=== PATIENT | female | born 1970 | race Caucasian/White ===

== ENCOUNTER 2016-07-14 10:17 | Inpatient (IN) | payer BC ==
[2016-06-22 10:14] LABS: BASO % 0.6 %; BASO ABS # 0.05 K/uL (0-0.2); COMPLETE YES; EOS % 1.4 %; HEMATOCRIT 42.4 % (37-47); IG% 0.4 %; LYMPH % 19.6 %; LYMPH ABS # 1.59 K/uL (1.2-3.4); MEAN CELL VOLUME 83.3 fL (80-100); MEAN CORPUSCULAR HEMOGLOBIN 28.3 pg (25-34); MEAN PLATELET VOLUME 11.2 fL (7.4-10.4); MONO % 8.5 %; NEUT % 69.5 %; PLATELET COUNT 226 K/uL (130-400); RED BLOOD COUNT 5.09 M/uL (4.2-5.4); WHITE BLOOD COUNT 8.12 K/uL (4.8-10.8)
--- NOTE | 2016-06-22 10:16 | PAT Medication Instructions ---
Service Date Jun 22, 2016. Current Home Medication List Albuterol Hfa (Ventolin Hfa), 2 PUFFS INH QID PRN for RN Cyclobenzaprine Hcl (Flexeril), 10 MG PO TID PRN for PRN Fluticasone Propionate (Nasal) (Flonase Allergy Relief), 2 SPRAYS ISAAC PRN Lidocaine (Aspercreme W/Lidocaine), 1 DOSE TOP PRN Lidocaine (Lidoderm Patch 5%), 1 DOSE TOP Q12H PRN for RN Melatonin (Melatonin Maximum Strengt), 0.5 TAB PO HS PRN for RN Meloxicam (Mobic), 15 MG PO PRN Menthol (Topical Analgesic) (Biofreeze), 1 DOSE TOP PRN Naproxen (Aleve), 440 MG PO Q12H PRN for RN Omeprazole (Prilosec), 20 MG PO QAM Saline (Saline Nasal [place] Infant), 1 SPRY ISAAC QID PRN for PRN Valacyclovir Hcl (Valtrex), 1 GM PO PRN Medication Instructions For Your Scheduled Surgery - Hold the following medications 7 days prior to surgery per surgeon instructions: Meloxicam (Mobic), 15 MG PO PRN Naproxen (Aleve), 440 MG PO Q12H PRN for RN - Hold the following medications 24 hours prior to surgery: Menthol (Topical Analgesic) (Biofreeze), 1 DOSE TOP PRN Lidocaine (Aspercreme W/Lidocaine), 1 DOSE TOP PRN Lidocaine (Lidoderm Patch 5%), 1 DOSE TOP Q12H PRN for RN - Hold the following medications the morning of surgery: Cyclobenzaprine Hcl (Flexeril), 10 MG PO TID PRN for PRN Valacyclovir Hcl (Valtrex), 1 GM PO PRN - Take the following medications the morning of surgery with a sip of water: Saline (Saline Nasal [place] ), 1 SPRY ISAAC QID PRN for PRN Omeprazole (Prilosec), 20 MG PO QAM Fluticasone Propionate (Nasal) (Flonase Allergy Relief), 2 SPRAYS ISAAC PRN Albuterol Hfa (Ventolin Hfa), 2 PUFFS INH QID PRN for RN (bring with you to hospital on day of surgery) - Take the following medications as scheduled the night before surgery: Saline (Saline Nasal [place] Infant), 1 SPRY ISAAC QID PRN for PRN Melatonin (Melatonin Maximum Strengt), 0.5 TAB PO HS PRN for RN Fluticasone Propionate (Nasal) (Flonase Allergy Relief), 2 SPRAYS ISAAC PRN Cyclobenzaprine Hcl (Flexeril), 10 MG PO TID PRN for PRN If you have any questions please call us at [phone] or [phone] ( Naomi) or [phone]
[2016-06-22 10:37] LABS: CREATININE 0.77 mg/dl (0.60-1.20)
[2016-06-22 10:38] LABS: BUN/CREATININE RATIO 14.5 (10-20); CALCIUM 9.4 mg/dl (8.5-10.1); POTASSIUM 3.8 mmol/L (3.5-5.1)
--- NOTE | 2016-06-22 10:45 | DIAGNOSTIC IMAGING REPORT ---
TWO VIEW CHEST CLINICAL HISTORY: Preoperative examination. FINDINGS: PA and lateral chest radiographs are obtained. No prior studies are available for comparison at the time of dictation. The cardiomediastinal silhouette is unremarkable. There are low lung volumes. The lungs and pleural spaces are clear. There is no pneumothorax. The bony thorax appears intact. Mild thoracic scoliosis is observed. IMPRESSION: Low lung volumes with no active disease in the chest. Electronically signed by: Darrian Curtis M.D. 06/22/2016 10:44 AM
--- NOTE | 2016-07-13 16:06 | HISTORY & PHYSICAL EXAMINATION ---
DATE OF ADMISSION: 07/14/2015 HISTORY OF PRESENT ILLNESS: The patient presents to us with complaint of lower back pain down the left leg. It occasionally radiates below the knee. She has trialed physical therapy and injections without any fci relief. Denies bowel or bladder dysfunction. PAST MEDICAL HISTORY: Significant for GERD, arthritis, heart murmur, fibromyalgia, irregular heartbeat, migraines, obesity, peptic ulcer disease, hypertension, endometriosis, cancer. PAST SURGICAL HISTORY: Significant for D\T\C x5, laparoscopy x5, hysterectomy. ALLERGIES: TETRACYCLINE. MEDICATIONS: Include Mobic, Flexeril, Xanax, omeprazole, vitamin E, vitamin D and calcium. SOCIAL HISTORY: She is . 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 Alcohol and tobacco none. FAMILY HISTORY: Noncontributory. REVIEW OF SYSTEMS: Significant for fatigue, weakness, weight gain, heart murmur, rash, irregular heartbeat, headache, hoarseness, nasal congestion, diarrhea, heartburn, constipation, abdominal pain, poor coordination, memory loss, weakness, cough, frequent urination. PHYSICAL EXAMINATION: VITAL SIGNS: She is 5 feet 10, 200 pounds. HEAD, EYES, EARS, NOSE, AND THROAT: Speech appropriate. CARDIOPULMONARY: No gross abnormalities. ABDOMEN: Soft, nontender. GENITOURINARY: Deferred. NEUROLOGIC: Cranial nerves II-XII grossly intact. MUSCULOSKELETAL: She moves slowly around the room favoring the left side. Strength is intact bilateral lower extremities. Neurovascularly intact. ASSESSMENT: Disc deterioration with disc protrusion L5-S1. Facet arthropathy at L5-S1. PLAN: At this point in time she has failed conservative therapy and may consider surgical intervention. Surgery would require lumbar decompression and fusion L5-S1. Risks, benefits, pros, cons, and alternatives were outlined in detail. She would like to proceed with the above-mentioned surgical planning.
[2016-07-14] VITALS (9 sets, daily range): BP systolic 110–158; BP diastolic 67–82; PULSE 52–79; TEMP 36.4–37; O2SAT 96–100; Ht 177.8 cm; Wt 96.8 kg
[~2016-07-14] VITALS: Ht 177.8 cm; Wt 96.8 kg
--- NOTE | 2016-07-14 07:22 | History & Physical Bridge Note ---
H&P Re-Evaluation Bridge Note: I have examined the patient, reviewed the History & Physical and in the interval since the performance of the History & Physical I have noted the following changes of clinical significance: No changes noted
[~2016-07-14 10:17] MED LIST: CEFAZOLIN 2000 MG/60 ML D5W IV SCH; CYCL10TA6 PO; FLUT0.15 NAE; LIDO16CR TOP; MELATAB2 PO; MELO7.5T5 PO; MENT4GEL TOP; NAPR1TAB9 PO; NF656 TOP; PRLSR20 PO; SALI1SPR15 NAE; VALA1TAB31 PO; VNTHFA/IN INH
[2016-07-14] MEDS ORDERED: FENTANYL CITRATE INJ 50 MCG/1 ML 2 ML VIAL ONE ×3 (10:51→12:55)
[2016-07-14] MEDS ORDERED: MIDAZOLAM HCL 1 MG/ML 2ML VIAL ONE (10:51)
[2016-07-14] MEDS ORDERED: OCTREOTIDE ACETATE 100 MCG/ML VIAL SQ PRN (11:00)
[2016-07-14] MEDS: LACTATED RINGER'S 1000ML 1,000 ML IV SCH ×4 (11:10→23:39)
[2016-07-14] MEDS ORDERED: HYDROmorphone INJ 2 MG/ML SYR/VIAL ONE ×2 (11:39→12:49)
[2016-07-14] MEDS ORDERED: ONDANSETRON INJ 2 MG/ML 2 ML VIAL IV PRN ×2 (12:15→13:00)
[2016-07-14] MEDS ORDERED: EpHEDrine SULFATE INJ 50 MG/ML AMP IV PRN (12:15)
[2016-07-14] MEDS ORDERED: ATROPINE SULFATE 0.1 MG/ML 5ML SYR IV PRN (12:15)
[2016-07-14] MEDS ORDERED: FENTANYL CITRATE INJ 50 MCG/1 ML 2 ML VIAL IV PRN (12:15)
[2016-07-14] MEDS ORDERED: FLOSEAL HEMOSTATIC MATRIX 10ML TOP ONE (12:46)
[2016-07-14] MEDS ORDERED: BUPIVACAINE/EPINEPHRINE 0.5% MPF 1:200,000 30 ML VIAL INJ ONE (12:46)
[2016-07-14] MEDS ORDERED: BACITRACIN 50000 UNIT VIAL IR ONE (12:46)
[2016-07-14] MEDS ORDERED: ROCURONIUM BROMIDE 10 MG/ML 5 ML VIAL ONE (12:49)
[2016-07-14] MEDS ORDERED: SODIUM CHLORIDE 0.9% 1000ML 1,000 ML IV SCH (12:49)
[2016-07-14] MEDS ORDERED: PROPOFOL IV EMULSION 10 MG/ML 20 ML VIAL IV ONE (12:49)
[2016-07-14] MEDS ORDERED: LIDOCAINE HCL 2% 2 ML VIAL (20MG/ML) ONE (12:49)
[2016-07-14] MEDS ORDERED: DEXAMETHASONE SOD INJ 4 MG/ML VIAL ONE (12:49)
--- NOTE | 2016-07-14 12:49 | [facility] Post Operative Brief Note ---
Immediate Operative Summary Operative Date Jul 14, 2016. Pre-Operative Diagnosis Disc deterioration with disc protrusion L5-S1. Facet arthropathy at L5-S1. Post-Operative Diagnosis Disc deterioration with disc protrusion L5-S1. Facet arthropathy at L5-S1. Procedure(s) Performed L5-S1 Transforaminal Lumbar Laminectomy/Decompression; Discectomy; Pedicle Screw Fixation; Placement of Interbody Spacer; Application of Verticle Spine; Posterolateral Gutter Fusion Surgeon Dr. Ashish Soto Director Asset Surgeon(s) Wandy Ramos PA-C Estimated Blood Loss 150mL Findings stenosis Specimens None per surgeon
[2016-07-14] MEDS ORDERED: KETOROLAC TROMETHAMINE 30 MG/ML VIAL ONE (12:51)
[2016-07-14] MEDS ORDERED: GLYCOPYRROLATE INJ 0.2 MG/ML VIAL ONE (12:51)
[2016-07-14] MEDS ORDERED: NEOSTIGMINE METHYLSULFATE 1 MG/ML 10ML VIAL ONE (12:51)
[2016-07-14] MEDS ORDERED: ONDANSETRON INJ 2 MG/ML 2 ML VIAL ONE (12:51)
[2016-07-14] MEDS ORDERED: PHENYLEPHRINE 100MCG/ML 5ML SYR ONE (12:51)
[2016-07-14] MEDS ORDERED: FAMOTIDINE 20 MG TAB PO PRN (13:00)
[2016-07-14] MEDS ORDERED: MAGNESIUM HYDROXIDE SUSP 30 ML UDC PO PRN (13:00)
[2016-07-14] MEDS ORDERED: ALUMINUM/MAGNESIUM SUSP 30 ML UDC PO PRN (13:00)
[2016-07-14] MEDS ORDERED: PROMETHAZINE HCL INJ 12.5 MG in SODIUM CHLORIDE 0.9% 50ML 50 ML IV PRN (13:00)
[2016-07-14] MEDS ORDERED: METOCLOPRAMIDE HCL INJ 5 MG/ML 2 ML VIAL IV PRN (13:00)
[2016-07-14] MEDS ORDERED: ALBUTEROL HFA 8 GM INHALER INH PRN (13:00)
[2016-07-14] MEDS ORDERED: DO NOT ADMINISTER FLU VACCINE PRN ×3 (13:00)
[2016-07-14] MEDS ORDERED: SODIUM CHLORIDE 0.65% NA SOLN 45 ML (OCEAN) NAE PRN (13:00)
[2016-07-14] MEDS ORDERED: LORAZEPAM 0.5 MG TAB PO PRN (13:00)
[2016-07-14] MEDS ORDERED: LORAZEPAM INJ 0.5 MG in SYRINGE 0 ML IV PRN (13:00)
[2016-07-14] MEDS ORDERED: ACETAMINOPHEN 500 MG TAB PO PRN (13:00)
[2016-07-14] MEDS ORDERED: SOD PHOSPHATE/SOD BIPHOSPHATE ENEMA 132 ML BTL PR PRN (13:00)
[2016-07-14] MEDS ORDERED: BISACODYL 10 MG SUPP PR PRN (13:00)
[2016-07-14] MEDS ORDERED: NALOXONE HCL 0.4 MG/1 ML VIAL/CARP IV PRN ×2 (13:00)
[2016-07-14] MEDS ORDERED: FLUTICASONE PROPIONATE NA SPR 16 GM BTL NAE PRN (13:00)
[2016-07-14] MEDS ORDERED: ACETAMINOPHEN IV 100 ML IV PRN (13:00)
[2016-07-14] MEDS ORDERED: DO NOT ADMINISTER PNEUMOCOCCAL VACCINE PRN ×2 (13:00)
[2016-07-14] MEDS ORDERED: hydrOXYzine HCL 25 MG TAB PO PRN (13:00)
[2016-07-14] MEDS ORDERED: ESMOLOL HCL 10 MG/ML 10 ML VIAL ONE (13:14)
--- NOTE | 2016-07-14 13:16 | OPERATIVE REPORT ---
DATE OF OPERATION: 07/14/2016 PREOPERATIVE DIAGNOSES: Spinal stenosis, disc desiccation L5-S1. POSTOPERATIVE DIAGNOSES: Same. PROCEDURES PERFORMED: 1. Lumbar decompression and medial facetectomy and foraminotomy L5-S1. 2. Posterior spinal fusion L5-S1. 3. Placement posterior instrumentation using Orthros rods and screws, L5-S1. 4. Interbody fusion L5-S1. 5. Placement of PEEK cage 8 x 26 mm at L5-S1. 6. Placement of locally harvested morcellized autograft in posterior gutters. 7. Placement of fiber FiberNet and OsteoStrux interbody space and posterior gutters. SURGEON: Dr. Ashish Soto. CREDIT COLLECTIONS ANALYST: Wandy Jauregui PA-C. ANESTHESIA: General. DISPOSITION: The patient awakened and taken to PACU in stable condition. Due to the complex nature of the procedure, the entire surgery was performed with the program services assistant of CRISTINA Hollins. The study assistant, under direct supervision, was involved in the actual performance of all aspects of the surgical procedure including hemostasis, tissue retraction and incision, instrument management, patient positioning, and wound closure. DESCRIPTION OF PROCEDURE: The patient was met with preoperatively, case discussed and all questions were addressed. At that point, the patient was taken back to operative suite and after undergoing successful general intubation by the department of anesthesia was placed in prone position on Evan table atop a Zeyad frame. All bony prominences were well padded and the eyes were inspected to ensure there was no external pressure placed upon them. At this point, lumbar spine was prepped and draped in normal sterile fashion. Sharp dissection with the assistance of Bovie cautery was performed down to and exposing the lamina and transverse processes of L5 and sacral ala bilaterally. From a caudal to cephalad fashion, complete laminectomy of L5 was performed including medial facetectomies and foraminotomies addressing significant lateral recess and foraminal disease. Pedicle screws were then placed at L5 and S1 levels bilaterally with assistance of fluoroscopy and appropriate size solomon provisionally placed. Through a transforaminal approach on the right, a complete discectomy was performed, endplates curetted to subcortical bone and an 8 x 26 mm PEEK cage filled with FiberNet and OsteoStrux tapped into position. The rods were then locked into final position. The transverse processes of L5 and sacral ala burred to subcortical bleeding bone. The remaining OsteoStrux and FiberNet were placed in the posterior gutters. A 7 flat SOFIA drain inserted. Incision was closed with 1-0 Vicryl in the fascia, 2-0 Vicryl subcutaneously, 4-0 Monocryl for final skin closure. Steri-Strips and sterile dressing was placed. The patient was awakened and taken to PACU in stable condition. I attest to the content of the Intraoperative Record and any orders documented therein. Any exceptio ns are noted below.
[2016-07-14] MEDS ORDERED: HYDROmorphone HCL 0.5MG/ML 50 ML CASSETTE ONE (13:19)
--- NOTE | 2016-07-14 13:34 | Anesthesiology Progress Note ---
Anesthesia Post Op Note Date & Time Jul 14, 2016 at 13:33 Vital Signs Pain Intensity: 5 Vital Signs Past 12 Hours Date Time Temp Pulse Resp B/P Pulse Ox O2 Delivery O2 Flow Rate FiO2 07/14/16 13:20 62 16 129/79 100 Mask 10 07/14/16 13:11 36.2 99 16 136/71 97 Mask 10 07/14/16 10:41 99 Room Air 07/14/16 10:33 36.6 63 20 158/82 Notes Mental Status: alert / awake / arousable, participated in evaluation Pt Amnestic to Procedure: Yes Nausea / Vomiting: adequately controlled Pain: adequately controlled Airway Patency, RR, SpO2: stable & adequate BP & HR: stable & adequate Hydration State: stable & adequate Anesthetic Complications: no major complications apparent
--- NOTE | 2016-07-14 13:44 | DIAGNOSTIC IMAGING REPORT ---
INTRAOPERATIVE LUMBAR SPINE 2 VIEWS CLINICAL HISTORY: [id number]/FUSION/INTERBODY COMPARISON STUDY: No previous studies for comparison. FINDINGS: 31 seconds of fluoroscopic time was utilized. There are postsurgical changes of an L5-S1 discectomy and interbody fusion. There are L5 and S1 pedicle screws with adjoining spinal rods. IMPRESSION: Intraoperative radiographs demonstrating an L5-S1 discectomy, interbody fusion and posterior hardware fusion Electronically signed by: Pola Stanley M.D. 07/14/2016 1:42 PM
[2016-07-14] MEDS: HYDROmorphone HCL 0.5MG/ML 50 ML CASSETTE IV PRN ×3 (14:26→23:11)
--- NOTE | 2016-07-14 18:38 | Medical Consult ---
History General Date of Service: Jul 14, 2016. Chief Complaint: post op care Stated Complaint: Spinal Stenosis HPI The patient is a 45 year old female who presents to [facility] with complaints of Spinal Stenosis. The patient's primary care provider is Alden eLung D.O.. Historian: patient Severity: mild Complaint Status: improved Quality of Pain: aching, dull Method of Injury: other (spine surgery) Modifying Factors: movement Review of Systems Eyes: reports: no symptoms ENT: reports: no symptoms Cardiovascular: reports: no symptoms Respiratory: denies: cough, orthopnea Gastrointestinal: denies: abdominal pain, constipation Genitourinary - Female: reports: no symptoms Musculoskeletal: reports: back pain, myalgias Integumentary: reports: no symptoms Neurologic: reports: no symptoms Psychiatric: reports: anxiety, denies: depression Past Medical History Past Medical History: cancer (carcinoid tumor s/p removal), fibromyalgia, GERD Past Surgical History: hysterectomy, other (ileal and appendiceal resection) Family History Sibling: Hypertension Social History Hx Tobacco Use In Past Year?: No Smoking Status: Never Smoker Immunizations History of Influenza Vaccine: Unknown History of Tetanus Vaccine?: Unknown History of MDRO History of MDRO: No Allergies Coded Allergies: Doxycycline (Unverified Allergy, Unknown, NAUSEA, 06/22/16) POLLEN (Unverified Allergy, Unknown, POLLEN,DUST,GRASS-ITCHY EYES, STUFFY NOSE, 06/22/16) Tetracycline (Unverified Allergy, Unknown, nausea, 06/22/16) Current Medications Reported Home Medications Medications Dose Route/Sig Max Daily Dose Days Date Category Lidoderm Patch 5% (Lidocaine) 1 Ea Tdsy 1 Dose TOP Q12H PRN 06/22/16 Reported Aspercreme W/Lidocaine (Lidocaine) 4 % Cre 1 Dose TOP PRN 06/22/16 Reported Biofreeze (Menthol (Topical Analgesic)) 4 % Gel 1 Dose TOP PRN 06/22/16 Reported Aleve (Naproxen) 220 Mg Tab 440 Mg PO Q12H PRN 06/22/16 Reported Saline Nasal [place] Infant (Saline) 0.65 % Spr 1 [place] ISAAC QID PRN 7 06/22/16 Reported Flonase Allergy Relief (Fluticasone Propionate (Nasal)) 50 Mcg/Act Spr 2 Sprays ISAAC PRN 06/22/16 Reported Melatonin Maximum Strengt (Melatonin) 5 Mg Tab 0.5 Tab PO HS PRN 30 06/22/16 Reported Flexeril (Cyclobenzaprine Hcl) 10 Mg Tab 10 Mg PO TID PRN 06/22/16 Reported Mobic (Meloxicam) 7.5 Mg Tab 15 Mg PO PRN 06/22/16 Reported Valtrex (Valacyclovir Hcl) 1 Gm Tab 1 Gm PO PRN 06/22/16 Reported Ventolin Hfa (Albuterol) 200 Puffs/69814 Mcg Aers 2 Puffs INH QID PRN 06/22/16 Reported Prilosec (Omeprazole) 20 Mg Capcr 20 Mg PO QAM 06/22/16 Reported Physical Physical Exam Vital Signs: Date Time Temp Pulse Resp B/P Pulse Ox O2 Delivery O2 Flow Rate FiO2 07/14/16 17:33 36.4 62 14 125/78 100 Nasal Cannula 4.0 07/14/16 16:26 36.4 63 14 116/77 100 Nasal Cannula 4.0 07/14/16 15:39 36.4 79 14 119/81 100 Nasal Cannula 4.0 07/14/16 15:00 52 16 113/73 100 Nasal Cannula 4.0 07/14/16 14:25 Nasal Cannula 4.0 07/14/16 14:25 36.6 61 16 120/77 100 Nasal Cannula 4.0 07/14/16 14:25 100 Nasal Cannula 4.0 07/14/16 14:15 60 20 132/78 100 Nasal Cannula 4 07/14/16 14:00 56 16 121/82 100 Nasal Cannula 4 07/14/16 13:50 36.4 58 15 121/81 100 Nasal Cannula 4 07/14/16 13:40 53 16 124/73 100 Nasal Cannula 4 07/14/16 13:30 57 17 127/83 100 Mask 10 07/14/16 13:20 62 16 129/79 100 Mask 10 07/14/16 13:11 36.2 99 16 136/71 97 Mask 10 07/14/16 10:41 99 Room Air 07/14/16 10:33 36.6 63 20 158/82 General Appearance: WELL-APPEARING, uncomfortable Head: NORMOCEPHALIC, ATRAUMATIC Eyes: PERRLA, EOMI Respiratory: BREATH SOUNDS NORMAL, CLEAR TO AUSCULTATION, NO RESPIRATORY DISTRESS Cardiovasular: REGULAR RATE/RHYTHM, NORMAL S1S2 Abdomen: NON TENDER, NORMAL BOWEL SOUNDS, NO REBOUND Back: other (dressing in place mild tenderness to palpitation) Neuro: ALERT, ORIENTED x 3, NORMAL MOTOR EXAM, NORMAL SENSATION Psychiatric: NORMAL AFFECT, NO SUICIDAL IDEATION Diagnostics Radiology Interpretation: CXR NORMAL EKG Interpretation: NORMAL EKG Impression Assessment and Plan 45 F with spinal surgery, doing well post op home medications have been continued for GERD, no meds currently for HTN and inhaled meds are PRN only regarding her carcinoid, initially metastatic at onset, no recent issues but octreotide is listed for prn use DVT prevention is mechanical Admit To Med/Surg Code Status Level 1 - Full Code DVT Prophylaxis SCDs
[2016-07-14] MEDS: CEFAZOLIN IV 2,000 MG in DEXTROSE 5% 50ML 50 ML IV SCH (19:31)
[2016-07-14] MEDS: DEXAMETHASONE INJ 6 MG in SYRINGE 0 ML IV SCH (19:43)
[2016-07-14] MEDS: DOCUSATE SODIUM/SENNA 50/8.6MG TAB PO SCH (20:38)
[2016-07-15 02:43] VITALS: BP 110/63; PULSE 56; TEMP 36.6; O2SAT 98
[2016-07-15] MEDS: CEFAZOLIN IV 2,000 MG in DEXTROSE 5% 50ML 50 ML IV SCH (03:38)
[2016-07-15] MEDS: DEXAMETHASONE INJ 6 MG in SYRINGE 0 ML IV SCH ×2 (03:38→11:34)
[2016-07-15 04:00] VITALS: BP 95/59; PULSE 70; TEMP 36.7; O2SAT 95
[2016-07-15] MEDS ORDERED: HYDROmorphone INJ 1 MG/ML SYR IV PRN (06:00)
[2016-07-15] MEDS ORDERED: DC PCA ONE (06:00)
[2016-07-15] MEDS ORDERED: NURSING VERBAL MED ORDER ONE (06:15)
[2016-07-15 07:31] LABS: MEAN CELL VOLUME 82.8 fL (80-100); MEAN CORPUSCULAR HEMOGLOBIN 28.4 pg (25-34); MEAN CORPUSCULAR HGB CONC 34.3 g/dl (32-36); MEAN PLATELET VOLUME 10.9 fL (7.4-10.4); PLATELET COUNT 231 K/uL (130-400); RED BLOOD COUNT 4.47 M/uL (4.2-5.4); WHITE BLOOD COUNT 22.94 K/uL (4.8-10.8)
[2016-07-15] MEDS: OXYCODONE HCL IR 5 MG TAB (IMMEDIATE RELEASE) PO PRN ×4 (07:36→17:50)
[2016-07-15] MEDS: PANTOprazole SOD 40 MG TAB PO SCH (07:36)
[2016-07-15 07:42] VITALS: BP 118/75; PULSE 59; TEMP 36.9; O2SAT 95
[2016-07-15 07:56] LABS: BASO ABS # 0.01 K/uL (0-0.2); COMPLETE YES; IG% 0.4 %; LYMPH ABS # 0.69 K/uL (1.2-3.4); MONO % 2.9 %; NEUT % 93.7 %
[2016-07-15 08:04] LABS: BUN/CREATININE RATIO 11.3 (10-20); CALCIUM 9.1 mg/dl (8.5-10.1); CREATININE 0.98 mg/dl (0.60-1.20)
--- NOTE | 2016-07-15 08:22 | Anesthesiology Progress Note ---
Anesthesia Post Op Note Date & Time Jul 15, 2016 at 08:21 Vital Signs Vital Signs Past 12 Hours Date Time Temp Pulse Resp B/P Pulse Ox O2 Delivery O2 Flow Rate FiO2 07/15/16 07:42 36.9 59 16 118/75 95 Room Air 07/15/16 07:41 Room Air 07/15/16 04:00 36.7 70 16 95/59 95 Room Air 07/15/16 02:43 36.6 56 16 110/63 98 Room Air 07/14/16 23:49 37.0 57 16 110/67 96 Room Air 07/14/16 23:30 Room Air Notes Mental Status: alert / awake / arousable, participated in evaluation Pt Amnestic to Procedure: Yes Nausea / Vomiting: adequately controlled Pain: adequately controlled Airway Patency, RR, SpO2: stable & adequate BP & HR: stable & adequate Hydration State: stable & adequate Anesthetic Complications: no major complications apparent
--- NOTE | 2016-07-15 08:34 | PROGRESS NOTE ---
DATE: 07/15/2016 Postop day 1. Back pain controlled. Leg pain improved. Vital signs stable. T-max 36.9. SOFIA drained 85 mL. Hematocrit this a.m. is 37.0. PHYSICAL EXAMINATION: She has good strength to testing, appears comfortable. ASSESSMENT: Status post lumbar decompression and fusion. PLAN: At this time, will initiate physical therapy, advance her bowel regimen and discharge home possibly tomorrow.
[2016-07-15 11:34] VITALS: BP 103/65; PULSE 71; TEMP 36.7; O2SAT 95
[2016-07-15 14:50] VITALS: BP 137/83; PULSE 58; TEMP 36.9; O2SAT 96
[2016-07-15] MEDS: DOCUSATE SODIUM/SENNA 50/8.6MG TAB PO SCH (20:33)
[2016-07-15 23:49] VITALS: BP 119/73; PULSE 54; TEMP 36.5; O2SAT 97
[2016-07-16] MEDS: POLYETHYLENE (MIRALAX) 17 GM PACK PO SCH ×2 (04:56→12:35)
[2016-07-16] MEDS: OXYCODONE HCL IR 5 MG TAB (IMMEDIATE RELEASE) PO PRN ×3 (05:51→12:40)
[2016-07-16 05:58] VITALS: BP 123/80; PULSE 51; TEMP 36.6; O2SAT 97
[2016-07-16] MEDS ORDERED: RXC5 PO (07:43)
--- NOTE | 2016-07-16 07:44 | Discharge Instructions ---
Discharge Instructions Admission Reason for Admission: Spinal Stenosis Discharge Discharge Diagnosis / Problem: stenosis Discharge Goals Goal(s): Improve function Activity Recommendations Activity Limitations: per Instructions/Follow-up section . Instructions / Follow-Up Instructions / Follow-Up ACTIVITY RECOMMENDATIONS: SELF CARE INSTRUCTIONS AFTER THORACIC/LUMBAR FUSIONS 1. You may walk to your tolerance. It is good exercise for your legs and back. Expect some back and intermittent leg aches and pains. 2. You may perform "counter-top" level activities (make a sandwich, mila with a project, etc.). 3. No bending or lifting of more than 10 pounds or back twisting of any nature (roll like a log when turning in bed). 4. You may ride in a car for 20-30 minutes at a time. No driving until after your first visit with your doctor. 5. Frequent changes of position and restricting sitting to 30 minutes at a time will help limit the amount of back spasms and stiffness you may experience. 6. You may discontinue the use of ambulatory aids (cane, crutches, etc.) once your strength and confidence allow. 7. You may microsoft infrastructure consultant the shower and let water strike your incision when you arrive home at least once daily. Do not take a tub bath, sit in a hot tub or go into a swimming pool until after your first recheck in the office. SPECIAL CARE INSTRUCTIONS: VERY IMPORTANT TO READ AND REVIEW A. Your surgical incision has been closed with a cosmetic suture under the skin that will dissolve in about 6 weeks. In 14 days, you can use a pair of clean scissors and cut the suture that is left outside of the skin at the ends of your incision. 1. The small skin tapes can be removed 7 days after surgery if they have not fallen off by that point. 2. You may keep the wound open to air as much as possible to promote healing after post-op day number 5 unless told otherwise by your doctor. 3. If you think the wound looks like it is becoming infected (redness or worsening drainage) and/or you are experiencing fever, chill or worsening back pain and muscle spasms, contact the office so that we may evaluate you as soon as possible. B. Complications are uncommon, but please contact us if you have any signs or symptoms of: 1. wound infection (fever higher than 102.5 degrees F, redness, separation of wound, drainage, or increasing pain from the incision) 2. blood clots in legs (pain, swelling, redness and warmth in legs) 3. urinary tract infection (fever higher than 102.5 degrees F, burning upon urination or increased frequency of urination) 4. nerve problems (inability to walk on your toes or heels, numbness, loss of bowel or bladder control) 5. any other symptoms that concern you C. Please call the office at if you have any concerns or questions about your operation or recovery. D. No smoking! Smoking drastically decreases the chance of a solid fusion. E. Do not take any anti-inflammatory medications (Indocin, Advil, Motrin, Aspirin, Naprosyn, etc.) as these may inhibit the chance of a solid fusion. Tylenol is okay to take for pain. MANAGING PAIN AFTER SPINAL SURGERY 1. Narcotic medication is intended for short-term use and will be provided for surgical pain. Surgical pain usually lasts for a period of 4-6 weeks. Narcotic medication includes Percocet, Vicodin, Darvocet, Tylenol #3 or Lortab. 2. Longer-term pain is more appropriately treated with non-narcotic medication such as Tylenol ES. 3. Muscle spasm is not appropriately treated with narcotics. Muscle relaxers such as Soma, Flexeril or Skelaxin can be used along with Tylenol ES. 4. Remember that we all live with some "aches and pains". This is not unusual or uncommon after an injury or as we get older. a. Back pain is expected and may include muscle spasms for 4 to 6 weeks after surgery. The pain should gradually improve. If the pain worsens for no apparent reason, please contact the office. b. Intermittent leg pain may also be experienced and should not be concerned about unless it worsens for no apparent reason. If so, please contact the office. 5. We will provide appropriate medication within the normal guidelines of their prescribed use. We will also be very cautious and aware of potential abuse and extended duration of patients' medication needs. a. Pain medications are for your comfort and to assist with sleep and rest so that the tissue can heal. They are not provided in order to return to normal activity and should not be used through the day. To do so or worsening pain at night can result from ongoing tissue damage and development of tolerance to the prescribed medicine. 6. Please allow 2-3 days to process refills. Prescriptions will not be mailed but must be picked up at the office. FOLLOW UP VISIT: Keep your scheduled follow-up appointment. Any questions, please call the office at . Current Hospital Diet Patient's current hospital diet: Regular Diet Discharge Diet Recommended Diet: Regular Diet Procedures Procedures Performed: L5-S1 Transforaminal Lumbar Laminectomy/Decompression; Discectomy; Pedicle Screw Fixation; Placement of Interbody Spacer; Application of Verticle Spine; Posterolateral Gutter Fusion Pending Studies Studies pending at discharge: no Medical Emergencies . Who to Call and When: Medical Emergencies: If at any time you feel your situation is an emergency, please call 911 immediately. . Non-Emergent Contact Non-Emergency issues call your: Primary Care Provider . "Provider Documentation" section prepared by Ashish Soto. VTE Core Measure Inpt VTE Proph given/why not?: Atul Gee, [facility]
[2016-07-16] MEDS: PANTOprazole SOD 40 MG TAB PO SCH (07:52)
[2016-07-16 08:02] VITALS: BP 132/78; PULSE 88; TEMP 36.5; O2SAT 95
[2016-07-16 08:23] VITALS: O2SAT 95
[2016-07-16 10:42] VITALS: BP 123/80; PULSE 51; TEMP 36.6; O2SAT 97
--- NOTE | 2016-07-16 14:42 | DISCHARGE SUMMARY ---
PRINCIPAL DIAGNOSIS: Spinal stenosis. HOSPITAL COURSE FOLLOWS: On July 14, the patient underwent lumbar decompression and fusion L5-S1, tolerated this well and taken to the orthopedic floor postoperatively. Postop day #1, he was up and ambulatory. Leg pain, back pain controlled; progressed to postop day #2. SOFIA drain decreased appropriately, subsequently was discharged home with home health. Discharge orders and instructions found on the chart for further review.
== END 2016-07-16 13:21 | disposition home health service (06) | DRG 460 ==
LOC: ENRESERVTM → ENRESERVDT → C.ACU 10:17 → C.3E 12:53
PROVIDERS: ADMIT Orthopaedic Surgery Orthopaedic Surgery of the Spine; ATTEND Orthopaedic Surgery Orthopaedic Surgery of the Spine
PROC: 0ST40ZZ Resection of Lumbosacral Disc, Open Approach (ICD-10-PCS; principal; 2016-07-14 12:30)
PROC: 0SG30AJ Fusion of Lumbosacral Joint with Interbody Fusion Device, Posterior Approach, Anterior Column, Open Approach (ICD-10-PCS; principal; 2016-07-14 12:30)
PROC: 0SG3071 Fusion of Lumbosacral Joint with Autologous Tissue Substitute, Posterior Approach, Posterior Column, Open Approach (ICD-10-PCS; principal; 2016-07-14 12:30)
DX: M51.27 Other intervertebral disc displacement, lumbosacral region (principal); E34.0 Carcinoid syndrome; M48.07 Spinal stenosis, lumbosacral region; M47.27 Other spondylosis with radiculopathy, lumbosacral region; K21.9 Gastro-esophageal reflux disease without esophagitis; M79.7 Fibromyalgia; M19.90 Unspecified osteoarthritis, unspecified site; R01.1 Cardiac murmur, unspecified; E66.9 Obesity, unspecified; Z68.30 Body mass index [BMI] 30.0-30.9, adult; Z79.1 Long term (current) use of non-steroidal anti-inflammatories (NSAID); Z79.899 Other long term (current) drug therapy

== ENCOUNTER 2020-05-15 14:51 | Observation (INO) ==
[2020-05-15 16:01] LABS: Basophils # (auto) 0.01 K/uL (0-0.2); Basophils % (auto) 0.3 %; Eosinophils # (auto) 0.04 K/uL (0-0.5); Hematocrit (blood only) 45.5 % (37-47); Hemoglobin 15.6 g/dL (12.0-16.0); Lymphocytes # (auto) 0.87 K/uL (1.2-3.4); Lymphocytes % (auto) 22.7 %; Mean Corpuscular Hemoglobin 29.2 pg (25-34); Mean Corpuscular Hgb Conc 34.3 g/dL (32-36); Mean Platelet Volume 10.6 fL (7.4-10.4); Monocytes % (auto) 15.6 %; Neutrophils # (auto) 2.32 K/uL (1.4-6.5); Neutrophils % (auto) 60.4 %; Platelet Count 157 K/uL (130-400); RDW Coefficient of Variation 13.7 % (11.5-14.5); RDW Standard Deviation 42.7 fL (36.4-46.3); Red Blood Count 5.35 M/uL (4.2-5.4); White Blood Count 3.84 K/uL (4.8-10.8)
[2020-05-15] MEDS ORDERED: SODIUM CHLORIDE 0.9% 1000ML 2,000 ML IV ONE (16:05)
[2020-05-15 16:06] LABS: Appearance Urine Clear (Clear); Bilirubin Urine Negative (Negative); Blood Urine Negative (Negative); Color Urine Yellow; Glucose Urine UA Negative (Negative); Ketones Urine Negative (Negative); Leukocyte Esterase Urine Negative (Negative); Nitrite Urine Negative (Negative); Protein Urine Negative (Negative); Specific Gravity Urine 1.014 (1.000-1.030); Urobilinogen Urine Negative (Negative)
[2020-05-15] MEDS ORDERED: FAMOTIDINE 20MG IV PUSH 20 MG/5 ML SYR IV STA (16:06)
[2020-05-15] MEDS ORDERED: ACETAMINOPHEN 1,000 MG/100 ML VIAL IV STA (16:06)
[2020-05-15] MEDS ORDERED: PROCHLORPERAZINE 2 ML IV ONE (16:07)
[2020-05-15] MEDS ORDERED: diphenhydrAMINE 50 MG/ML VIAL IV STA (16:07)
[2020-05-15 16:16] LABS: Alanine Aminotransferase 37 U/L (12-78); Albumin Level 3.9 gm/dl (3.4-5.0); BUN Creatinine Ratio 13.9 (10-20); Blood Urea Nitrogen 10 mg/dl (7-18); Calcium 9.5 mg/dl (8.5-10.1); Carbon Dioxide 31 mmol/L (21-32); Chloride 103 mmol/L (98-107); Creatinine Clr Calc Pharmacy 107.7 ml/min; Est GFR (African American) 110.3; Est GFR (Non-African American) 95.1; Glucose 82 mg/dl (70-99); Potassium 3.6 mmol/L (3.5-5.1); Sodium 140 mmol/L (136-145)
[2020-05-15 16:22] LABS: Albumin Globulin Ratio 1.1 (0.9-2); Alkaline Phosphatase 147 U/L (45-117); Aspartate Aminotransferase 27 U/L (15-37); Bilirubin Direct 0.1 mg/dl (0-0.2); Bilirubin,Total 0.3 mg/dl (0.2-1); Globulin 3.5 gm/dl (2.5-4.0); Magnesium 2.1 mg/dl (1.8-2.4); Phosphorus 2.8 mg/dl (2.5-4.9); Total Protein 7.4 gm/dl (6.4-8.2)
[2020-05-15 16:37] LABS: NT Pro B Type Natriuretic Pept 36 pg/ml (0-450); Troponin I < 0.015 ng/ml (0-0.045)
--- NOTE | 2020-05-15 16:53 | Electrocardiogram Report ---
Test Reason : Blood Pressure : / mmHG Vent. Rate : 050 BPM Atrial Rate : 050 BPM P-R Int : 162 ms QRS Dur : 144 ms QT Int : 442 ms P-R-T Axes : 046 006 122 degrees QTc Int : 402 ms Sinus bradycardia Left bundle branch block Abnormal ECG When compared with ECG of 26-JUL-2019 01:12, Left bundle branch block is now Present Confirmed by Devin Spence ([id number]) on 05/15/2020 4:52:57 PM Referred By: Confirmed By:Manny Spence
[2020-05-15 17:14] LABS: D Dimer 220 ug/L FEU (0-500); Prothrombin Time 10.4 Seconds (9.0-12.0)
--- NOTE | 2020-05-15 17:28 | XRay Report ---
XR chest 1V portable CLINICAL HISTORY: SEPSIS COMPARISON STUDY: 06/22/2016 FINDINGS: The cardiac and mediastinal contours are normal. There is no evidence of focal pulmonary co nsolidation. There is no evidence of failure. No pleural effusions are visualized.[Slight interstitia l prominence likely relates to technical factors given the AP technique and patient's body habitus. IMPRESSION: No active disease in the chest. ACT 112: Negative or not required by law. Electronically signed by: Pola Stanley M.D. 05/15/2020 5:27 PM
[2020-05-15 17:36] LABS: Procalcitonin < 0.05 ng/ml (0-0.5)
[2020-05-15 17:39] LABS: Monotest Negative (Negative)
[2020-05-15 18:10] LABS: Adenovirus PCR Not Detected (NotDetected); Coronavirus 229E PCR Not Detected (NotDetected); Coronavirus HKU1 PCR Not Detected (NotDetected)
[2020-05-15 18:11] LABS: Coronavirus CoV-2 (COVID19)PCR DETECTED (NotDetected); Coronavirus NL63 PCR Not Detected (NotDetected); Coronavirus OC43PCR Not Detected (NotDetected); Human Metapneumovirus PCR Not Detected (NotDetected); Influenza A PCR Not Detected (NotDetected); Rhinovirus/Enterovirus PCR Not Detected (NotDetected)
[2020-05-15 18:13] LABS: Bordetella parapertussis PCR Not Detected (NotDetected); Bordetella pertussis PCR Not Detected (NotDetected); Chlamydia pneumoniae PCR Not Detected (NotDetected); Mycoplasma pneumoniae PCR Not Detected (NotDetected); Parainfluenza Virus 1 PCR Not Detected (NotDetected); Parainfluenza Virus 2 PCR Not Detected (NotDetected); Parainfluenza Virus 3 PCR Not Detected (NotDetected); Parainfluenza Virus 4 PCR Not Detected (NotDetected); Respiratory Syncytial VirusPCR Not Detected (NotDetected)
[2020-05-15 18:14] LABS: Influenza B PCR Not Detected (NotDetected)
--- NOTE | 2020-05-15 19:12 | Emergency Department Note ---
Impression & Plan COVID-19, New onset left bundle branch block (LBBB), Atypical chest pain ED Provider Note NAME: SANGEETA GUERRA AGE: 49 SEX: F ARRIVES VIA: Walk-In INFORMANT: Patient, ED PROVIDER(S): Josh Amos MD CHIEF COMPLAINT: Feverish, BOYLE, diarrhea, body aches PLAN: Disposition: Admit MEDICAL DECISION MAKING: The patient is a pleasant 49-year-old woman with a past medical history of remote carcinoid tumor status post bowel resection, trigeminal neuralgia, GERD who presents emergency department for evaluation of constant worsening symptoms over the past several weeks of constant chest pain, generalized weakness, fev erishness, body aches, headache, diarrhea, recently seen by her PCP and treated with doxycycline. The patient had a CT scan of her abdomen pelvis 2 days ago that was negative for acute process. Reports she tested negative for COVID-19 on April 20 after her partner developed Covid-like symptoms that her partner was also Covid19 negative on her single test. Otherwise she denies any known COVID-19 exposures. She reports nausea and decreased appetite and oral intake but no vomiting. Denies any prior history of heart disease or blood clots in her legs or lungs. On arrival patient is uncomfortable appearing but no acute distress, afebrile stable vital signs. She does appear clinically dry. He has generalized abdominal discomfort without discrete tenderness. Lungs are clear. EKG demonstrates a new left bundle branch block when compared to July 2019 with QRS now lengthened to 144 compared to 88, previously. No sgarbossa criteria. WBC 3.8, nonspecific. H/H and platelets within normal limits. She does have mild lymphopenia at 0.87. Chemistry without acidosis. Lactate within normal limits. Electrolytes and LFTs unremarkable. Troponin negative/undetectable. Procalcitonin unremarkable < 0.05. UA without evidence of infection. Biofire PCR was performed and the patient was positive for COVID-19 today. On reevaluation the patient reported significant improvement after IV fluid hydration, Compazine, Pepcid, diphenhydramine as well as IV Tylenol. Moreover, she reported complete resolution of her chest pain that she relates has been constant for at least 3 weeks. She admits that she did stop taking her omeprazole because she was not eating that much and did not feel well. Case was reviewed with DENISE Perez Cardiology on-call, and we agree that given the patient's COVID-19 infection in the setting of her new left bundle branch block compared to July 2019, in the setting possible cardiac effects related to COVID-19, it is reasonable to admit the patient for further evaluation. I did review her findings including her COVID-19 positive test as well as her new left bundle branch block on EKG she is agreeable to proceed with admission per our recommendations. She was counseled to contact any individuals who she may have been in contact with including her father who is 70 years old and drove her to the hospital today. Case was discussed with Dr. Molina, [facility] hospitalist, who will evaluate the patient for admission. Triage Nursing notes reviewed and agree them. Prior medical records reviewed Vital Signs: reviewed and remarkable for no significant abnormalities Differential diagnosis: Cardiac ischemia, aortic dissection, pulmonary embolism, pneumothorax, pneumonia, pericarditis, myocarditis, esophageal rupture, GERD, cholecystitis, pancreatitis, musculoskeletal, as well as other pathologies. ER treatment provided: See below. Diagnostics interpreted by me: ECG: Sinus bradycardia, 50 bpm, no ectopy, left bundle branch block, no sgarbossa criteria, QTC 402, QRS 144. Left bundle branch block is new compared to July 26, 2019. Cardiac Monitoring: An order for continuous cardiac monitoring was placed and demonstrated Sinus bradycardia, 50 bpm, no ectopy. Laboratory studies: See below Imaging studies: XR chest 1V portable CLINICAL HISTORY: SEPSIS COMPARISON STUDY: 06/22/2016 FINDINGS: The cardiac and mediastinal contours are normal. There is no evidence of focal pulmonary consolidation. There is no evidence of failure. No pleural effusions are visualized.[Slight interstitial prominence likely relates to technical factors given the AP technique and patient's body habitus. IMPRESSION: No active disease in the chest. Consultation(s): DENISE Perez Cardiology on-call HPI: The patient is a pleasant 49-year-old woman with a past medical history of remote carcinoid tumor status post bowel resection, trigeminal neuralgia, GERD who presents emergency department for evaluation of constant worsening symptoms over the past several weeks of constant chest pain, generalized weakness, feverishness, body aches, headache, diarrhea, recently seen by her PCP and treated with doxycycline. The patient had a CT scan of her abdomen pelvis 2 days ago that was negative for acute process. Reports she tested negative for C OVID-19 on April 20 after her partner developed Covid-like symptoms that her partner was also Covid19 negative on her single test. Otherwise she denies any known COVID-19 exposures. She reports nausea and decreased appetite and oral intake but no vomiting. Denies any prior history of heart disease or blood clots in her legs or lungs. ROS: See above HPI for pertinent positives & negatives. A total of 10 systems reviewed and were otherwise negative. PAST MEDICAL HISTORY:See Below PAST SURGICAL HISTORY:See Below FAMILY HISTORY:See Below SOCIAL HISTORY:See Below HOME MEDICATIONS:See Below ALLERGIES:See Below VITALS:See Below PHYSICAL EXAMINATION: GENERAL: Awake, alert, uncomfortable/fatigued-appearing, in no distress HENT: Normocephalic, atraumatic. Oropharynx with dry mucous membranes and otherwise unremarkable. EYES: Normal conjunctiva. Sclera non-icteric. NECK: Supple. No nuchal rigidity. FROM. No JVD. RESPIRATORY: Clear to auscultation. CARDIAC: Regular rate, normal rhythm. Extremities warm and well perfused. Pulses equal. ABDOMEN: Soft, non-distended. Generalized abdominal discomfort without discrete tenderness to palpation. No rebound or guarding. No masses. RECTAL: Deferred. MUSCULOSKELETAL: Chest examination reveals no tenderness. The back is symmetrical on inspection without obvious abnormality. There is no CVA tenderness to palpation. No joint edema. LOWER EXTREMITIES: Calves are equal size bilaterally and non-tender. No edema. No discoloration. NEURO: Normal sensorium. No sensory or motor deficits noted. SKIN: No rash or jaundice noted. Josh Amos MD Past Med/Surg History Medical History 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 H/O: hysterectomy (2006) History of appendectomy S/P small bowel resection (2012) secondary to carcinoid tumor, small bowel resection and ileocolectomy S/P tonsillectomy and adenoidectomy Status post lumbar surgery (2015) diskectomy and fusion Family History Mother Anxiety Gallbladder disease Father Bradycardia Brother Bradycardia Uncle Prostate cancer Family/Other Breast cancer Denies family history of Ovarian cancer Myocardial infarction Colorectal cancer Social History Smoking Status: Never smoker Hx Alcohol Use: No Hx Substance Use: No Preferred Language: Cambodian Communication Ability: Effective Visual Impairment: No Limitations Hearing Ability: Normal Beliefs That Will Affect Care: None marital status: marital status details: Lives with Partner. 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 Feels Safe at Home: Yes Childhood Exposure to Second-Hand Smoke: No caffeine: Yes (Coffee x 4-5 ) during the past year weight has: remained stable Dental Care, Regularly: Yes Physical Activity Frequency: 1-2 Times per Week Seatbelt Use: always Sunscreen Use: Yes Allergies Allergies Allergy/AdvReac Type Severity Reaction Status Date / Time pollen extracts Allergy Intermediate POLLEN,DUST,GRASS-ITCHY Verified 05/15/20 17:03 EYES, STUFFY NOSE doxycycline AdvReac Intermediate NAUSEA Verified 05/15/20 17:03 tetracycline AdvReac Intermediate nausea Verified 05/15/20 17:03 Home Meds Home Medications Medication Instructions Recorded Confirmed diclofenac sodium 1 % topical gel 2 gm TOP QID PRN 11/12/19 05/15/20 carbamazepine 200 mg tablet 200 mg PO BID tab 12/31/19 05/15/20 acetaminophen [Tylenol Extra 1,000 mg PO DIRECTED PRN 04/20/20 05/15/20 Strength] cholestyramine (with sugar) 4 gm PO .COMPLEX PRN 04/20/20 05/15/20 diclofenac sodium [Pennsaid] 1 packet TOPICAL BID PRN 04/20/20 05/15/20 omeprazole 20 mg PO Q OTHER DAY 04/20/20 05/15/20 clonazepam 0.25 mg TRANSLINGUAL DIRECTED 05/15/20 05/15/20 PRN Previous Rx's Medication Instructions Recorded valacyclovir 1 gram tablet 2,000 mg PO Q12H PRN #30 tab 11/12/19 cholecalciferol (vitamin D3) 50 50 mcg PO DAILY #30 cap 05/12/20 mcg (2,000 unit) capsule doxycycline hyclate 100 mg tablet 100 mg PO BID 14 Days #28 tab 05/12/20 hydrocortisone 2.5 % topical cream 1 applic LA DAILY PRN #30 g 05/13/20 with perineal applicator Results & Data (ED) Vital Signs Vital Signs - 24 hr 05/15/20 14:54 05/15/20 15:53 05/15/20 16:55 Temperature 36.7 C Temperature Source Oral Pulse Rate 65 59 L 54 L Pulse Rate [Apical] Pulse Rate from SpO2 Sensor 61 56 L Respiratory Rate 18 13 17 Blood Pressure 131/83 128/73 146/75 H Blood Pressure [Right Arm] Blood Pressure Mean 99 89 92 Blood Pressure Mean [Right Arm] Pulse Oximetry 99 96 97 Oxygen Delivery Method Room Air Sepsis Recent Fever Within 48 Hours No Sepsis New/Unexplained Change in Mental Status No Sepsis Action Taken by Nursing No Action Required 05/15/20 17:01 05/15/20 18:06 05/15/20 19:00 Temperature Temperature Source Pulse Rate 60 54 L Pulse Rate [Apical] Pulse Rate from SpO2 Sensor 58 L 55 L Respiratory Rate 18 16 Blood Pressure 136/75 165/91 H 148/100 H Blood Pressure [Right Arm] Blood Pressure Mean 100 108 112 Blood Pressure Mean [Right Arm] Pulse Oximetry 99 98 Oxygen Delivery Method Sepsis Recent Fever Within 48 Hours Sepsis New/Unexplained Change in Mental Status Sepsis Action Taken by Nursing 05/15/20 20:36 05/15/20 21:00 05/15/20 21:30 Temperature Temperature Source Pulse Rate 54 L 48 L 48 L Pulse Rate [Apical] Pulse Rate from SpO2 Sensor 53 L 49 L 49 L Respiratory Rate 22 16 17 Blood Pressure 133/71 119/74 125/84 Blood Pressure [Right Arm] Blood Pressure Mean 98 91 102 Blood Pressure Mean [Right Arm] Pulse Oximetry 98 97 97 Oxygen Delivery Method Sepsis Recent Fever Within 48 Hours Sepsis New/Unexplained Change in Mental Status Sepsis Action Taken by Nursing 05/15/20 23:10 Temperature Temperature Source Pulse Rate Pulse Rate [Apical] 82 Pulse Rate from SpO2 Sensor Respiratory Rate 20 Blood Pressure Blood Pressure [Right Arm] 120/79 Blood Pressure Mean Blood Pressure Mean [Right Arm] 92 Pulse Oximetry 97 Oxygen Delivery Method Room Air Sepsis Recent Fever Within 48 Hours Sepsis New/Unexplained Change in Mental Status Sepsis Action Taken by Nursing Laboratory Data Attestation: I reviewed the patient's lab results. Result diagrams: 05/15/20 15:35 05/15/20 15:35 Lab Results 05/15/20 05/15/20 05/15/20 Range/Units 15:30 15:35 15:35 WBC 3.84 L (4.8-10.8) K/uL RBC 5.35 (4.2-5.4) M/uL Hgb 15.6 (12.0-16.0) g/dL Hct 45.5 (37-47) % MCV 85.0 (80-100) fL MCH 29.2 (25-34) pg MCHC 34.3 (32-36) g/dL RDW Std Deviation 42.7 (36.4-46.3) fL RDW Coeff of Dottie 13.7 (11.5-14.5) % Plt Count 157 (130-400) K/uL MPV 10.6 H (7.4-10.4) fL Immature Gran % (Auto) 0.0 % Neut % (Auto) 60.4 % Lymph % (Auto) 22.7 % [place] % (Auto) 15.6 % Eos % (Auto) 1.0 % Baso % (Auto) 0.3 % Neut # (Auto) 2.32 (1.4-6.5) K/uL Lymph # (Auto) 0.87 L (1.2-3.4) K/uL [place] # (Auto) 0.60 H (0.11-0.59) K/uL Eos # (Auto) 0.04 (0-0.5) K/uL Baso # (Auto) 0.01 (0-0.2) K/uL Immature Gran # (Auto) 0.00 (0.00-0.02) K/uL PT (9.0-12.0) Seconds INR (0.9-1.1) APTT (21.0-31.0) Seconds PTT Ratio D-Dimer (0-500) ug/L FEU Sodium 140 (136-145) mmol/L Potassium 3.6 (3.5-5.1) mmol/L Chloride 103 (98-107) mmol/L Carbon Dioxide 31 (21-32) mmol/L Anion Gap 6.0 (3-11) BUN 10 (7-18) mg/dl Creatinine 0.74 (0.6-1.2) mg/dl Est Cr Clr Drug Dosing 107.7 ml/min Est GFR ( Amer) 110.3 Est GFR (Non-Af Amer) 95.1 BUN/Creatinine Ratio 13.9 (10-20) Glucose 82 (70-99) mg/dl Lactate (0.4-2.0) mmol/L Calcium 9.5 (8.5-10.1) mg/dl Phosphorus 2.8 (2.5-4.9) mg/dl Magnesium 2.1 (1.8-2.4) mg/dl Total Bilirubin 0.3 (0.2-1) mg/dl Direct Bilirubin 0.1 (0-0.2) mg/dl AST 27 (15-37) U/L ALT 37 (12-78) U/L Alkaline Phosphatase 147 H (45-117) U/L Troponin I < 0.015 (0-0.045) ng/ml NT-Pro-B Natriuret Pep 36 (0-450) pg/ml Total Protein 7.4 (6.4-8.2) gm/dl Albumin 3.9 (3.4-5.0) gm/dl Globulin 3.5 (2.5-4.0) gm/dl Albumin/Globulin Ratio 1.1 (0.9-2) Procalcitonin (0-0.5) ng/ml TSH 2.210 (0.300-4.500) uIu/ml Urine Color Yellow Urine Appearance Clear (Clear) Urine pH 7.0 (4.5-7.5) Ur Specific [place] 1.014 (1.000-1.030) Urine Protein Negative (Negative) Urine Glucose (UA) Negative (Negative) Urine Ketones Negative (Negative) Urine Blood Negative (Negative) Urine Nitrite Negative (Negative) Urine Bilirubin Negative (Negative) Urine Urobilinogen Negative (Negative) Ur Leukocyte Esterase Negative (Negative) Adenovirus (PCR) (NotDetected) Anaplasma Smear See Comment B. pertussis DNA (PCR) (NotDetected) B.parapertussis DNA PCR (NotDetected) C. pneumoniae DNA (PCR) (NotDetected) Coronavirus OC43 (PCR) (NotDetected) Coronavirus HKU1 (PCR) (NotDetected) Coronavirus 229E (PCR) (NotDetected) COVID-19 PCR (NotDetected) Coronavirus NL63 (PCR) (NotDetected) Monoscreen (Negative) Human Metapneumovir PCR (NotDetected) Influenza Type A (PCR) (NotDetected) Influenza Type B (PCR) (NotDetected) M. pneumoniae (PCR) (NotDetected) Parainfluenza 1 (PCR) (NotDetected) Parainfluenza 2 (PCR) (NotDetected) Parainfluenza 3 (PCR) (NotDetected) Parainfluenza 4 (PCR) (NotDetected) RSV (PCR) (NotDetected) Entero/Rhino (PCR) (NotDetected) 05/15/20 05/15/20 05/15/20 Range/Units 15:35 15:35 16:21 WBC (4.8-10.8) K/uL RBC (4.2-5.4) M/uL Hgb (12.0-16.0) g/dL Hct (37-47) % MCV (80-100) fL MCH (25-34) pg MCHC (32-36) g/dL RDW Std Deviation (36.4-46.3) fL RDW Coeff of Dottie (11.5-14.5) % Plt Count (130-400) K/uL MPV (7.4-10.4) fL Immature Gran % (Auto) % Neut % (Auto) % Lymph % (Auto) % [place] % (Auto) % Eos % (Auto) % Baso % (Auto) % Neut # (Auto) (1.4-6.5) K/uL Lymph # (Auto) (1.2-3.4) K/uL [place] # (Auto) (0.11-0.59) K/uL Eos # (Auto) (0-0.5) K/uL Baso # (Auto) (0-0.2) K/uL Immature Gran # (Auto) (0.00-0.02) K/uL PT 10.4 (9.0-12.0) Seconds INR 1.0 (0.9-1.1) APTT 28.0 (21.0-31.0) Seconds PTT Ratio 1.0 D-Dimer 220 (0-500) ug/L FEU Sodium (136-145) mmol/L Potassium (3.5-5.1) mmol/L Chloride (98-107) mmol/L Carbon Dioxide (21-32) mmol/L Anion Gap (3-11) BUN (7-18) mg/dl Creatinine (0.6-1.2) mg/dl Est Cr Clr Drug Dosing ml/min Est GFR ( Amer) Est GFR (Non-Af Amer) BUN/Creatinine Ratio (10-20) Glucose (70-99) mg/dl Lactate 0.9 (0.4-2.0) mmol/L Calcium (8.5-10.1) mg/dl Phosphorus (2.5-4.9) mg/dl Magnesium (1.8-2.4) mg/dl Total Bilirubin (0.2-1) mg/dl Direct Bilirubin (0-0.2) mg/dl AST (15-37) U/L ALT (12-78) U/L Alkaline Phosphatase (45-117) U/L Troponin I (0-0.045) ng/ml NT-Pro-B Natriuret Pep (0-450) pg/ml Total Protein (6.4-8.2) gm/dl Albumin (3.4-5.0) gm/dl Globulin (2.5-4.0) gm/dl Albumin/Globulin Ratio (0.9-2) Procalcitonin < 0.05 (0-0.5) ng/ml TSH (0.300-4.500) uIu/ml Urine Color Urine Appearance (Clear) Urine pH (4.5-7.5) Ur Specific [place] (1.000-1.030) Urine Protein (Negative) Urine Glucose (UA) (Negative) Urine Ketones (Negative) Urine Blood (Negative) Urine Nitrite (Negative) Urine Bilirubin (Negative) Urine Urobilinogen (Negative) Ur Leukocyte Esterase (Negative) Adenovirus (PCR) (NotDetected) Anaplasma Smear B. pertussis DNA (PCR) (NotDetected) B.parapertussis DNA PCR (NotDetected) C. pneumoniae DNA (PCR) (NotDetected) Coronavirus OC43 (PCR) (NotDetected) Coronavirus HKU1 (PCR) (NotDetected) Coronavirus 229E (PCR) (NotDetected) COVID-19 PCR (NotDetected) Coronavirus NL63 (PCR) (NotDetected) Monoscreen Negative (Negative) Human Metapneumovir PCR (NotDetected) Influenza Type A (PCR) (NotDetected) Influenza Type B (PCR) (NotDetected) M. pneumoniae (PCR) (NotDetected) Parainfluenza 1 (PCR) (NotDetected) Parainfluenza 2 (PCR) (NotDetected) Parainfluenza 3 (PCR) (NotDetected) Parainfluenza 4 (PCR) (NotDetected) RSV (PCR) (NotDetected) Entero/Rhino (PCR) (NotDetected) 05/15/20 Range/Units 16:30 WBC (4.8-10.8) K/uL RBC (4.2-5.4) M/uL Hgb (12.0-16.0) g/dL Hct (37-47) % MCV (80-100) fL MCH (25-34) pg MCHC (32-36) g/dL RDW Std Deviation (36.4-46.3) fL RDW Coeff of Dottie (11.5-14.5) % Plt Count (130-400) K/uL MPV (7.4-10.4) fL Immature Gran % (Auto) % Neut % (Auto) % Lymph % (Auto) % [place] % (Auto) % Eos % (Auto) % Baso % (Auto) % Neut # (Auto) (1.4-6.5) K/uL Lymph # (Auto) (1.2-3.4) K/uL [place] # (Auto) (0.11-0.59) K/uL Eos # (Auto) (0-0.5) K/uL Baso # (Auto) (0-0.2) K/uL Immature Gran # (Auto) (0.00-0.02) K/uL PT (9.0-12.0) Seconds INR (0.9-1.1) APTT (21.0-31.0) Seconds PTT Ratio D-Dimer (0-500) ug/L FEU Sodium (136-145) mmol/L Potassium (3.5-5.1) mmol/L Chloride (98-107) mmol/L Carbon Dioxide (21-32) mmol/L Anion Gap (3-11) BUN (7-18) mg/dl Creatinine (0.6-1.2) mg/dl Est Cr Clr Drug Dosing ml/min Est GFR ( Amer) Est GFR (Non-Af Amer) BUN/Creatinine Ratio (10-20) Glucose (70-99) mg/dl Lactate (0.4-2.0) mmol/L Calcium (8.5-10.1) mg/dl Phosphorus (2.5-4.9) mg/dl Magnesium (1.8-2.4) mg/dl Total Bilirubin (0.2-1) mg/dl Direct Bilirubin (0-0.2) mg/dl AST (15-37) U/L ALT (12-78) U/L Alkaline Phosphatase (45-117) U/L Troponin I (0-0.045) ng/ml NT-Pro-B Natriuret Pep (0-450) pg/ml Total Protein (6.4-8.2) gm/dl Albumin (3.4-5.0) gm/dl Globulin (2.5-4.0) gm/dl Albumin/Globulin Ratio (0.9-2) Procalcitonin (0-0.5) ng/ml TSH (0.300-4.500) uIu/ml Urine Color Urine Appearance (Clear) Urine pH (4.5-7.5) Ur Specific [place] (1.000-1.030) Urine Protein (Negative) Urine Glucose (UA) (Negative) Urine Ketones (Negative) Urine Blood (Negative) Urine Nitrite (Negative) Urine Bilirubin (Negative) Urine Urobilinogen (Negative) Ur Leukocyte Esterase (Negative) Adenovirus (PCR) Not Detected (NotDetected) Anaplasma Smear B. pertussis DNA (PCR) Not Detected (NotDetected) B.parapertussis DNA PCR Not Detected (NotDetected) C. pneumoniae DNA (PCR) Not Detected (NotDetected) Coronavirus OC43 (PCR) Not Detected (NotDetected) Coronavirus HKU1 (PCR) Not Detected (NotDetected) Coronavirus 229E (PCR) Not Detected (NotDetected) COVID-19 PCR DETECTED A* (NotDetected) Coronavirus NL63 (PCR) Not Detected (NotDetected) Monoscreen (Negative) Human Metapneumovir PCR Not Detected (NotDetected) Influenza Type A (PCR) Not Detected (NotDetected) Influenza Type B (PCR) Not Detected (NotDetected) M. pneumoniae (PCR) Not Detected (NotDetected) Parainfluenza 1 (PCR) Not Detected (NotDetected) Parainfluenza 2 (PCR) Not Detected (NotDetected) Parainfluenza 3 (PCR) Not Detected (NotDetected) Parainfluenza 4 (PCR) Not Detected (NotDetected) RSV (PCR) Not Detected (NotDetected) Entero/Rhino (PCR) Not Detected (NotDetected) Administered Medications Discontinued Medications Carbamazepine (Carbamazepine 200 Mg Tablet) 200 mg PO NOW ONE Stop: 05/15/20 23:00 Last Admin: 05/15/20 23:16 Dose: 200 mg Documented by: [id number] Diphenhydramine HCl (Diphenhydramine 50 Mg/Ml Vial) 25 mg IV NOW STA Stop: 05/15/20 16:08 Last Admin: 05/15/20 16:37 Dose: 25 mg Documented by: [id number] Sodium Chloride (Nss 1000ml) 2,000 mls @ 999 mls/hr IV .Q2H1M ONE Stop: 05/15/20 18:05 Last Infusion: 05/15/20 18:30 Dose: 0 mls/hr Documented by: [id number] Admin: 05/15/20 16:36 Dose: 999 mls/hr Documented by: [id number] Acetaminophen (Ofirmev) 1,000 mg in 100 mls @ 400 mls/hr IV NOW STA Stop: 05/15/20 16:20 Last Infusion: 05/15/20 18:04 Dose: 0 mls/hr Documented by: [id number] Admin: 05/15/20 16:44 Dose: 400 mls/hr Documented by: [id number] Famotidine (Pepcid 20mg Iv Push) 20 mg in 5 mls @ 2.5 mls/min IV NOW STA Stop: 05/15/20 16:07 Last Admin: 05/15/20 16:38 Dose: 2.5 mls/min Documented by: [id number] Prochlorperazine (Compazine) 2 mls @ 1 mls/min IV ONE ONE Stop: 05/15/20 16:08 Last Admin: 05/15/20 16:38 Dose: 1 mls/min Documented by: [id number] Discharge Plan Visit Data Chief Complaint: Illness Stated Complaint: CHEST PAIN/NAUSEOUSNESS/ABDOMINAL PAIN ED Provider: Josh Amos Discharge Problem: COVID-19, New onset left bundle branch block (LBBB), Atypical chest pain Forms Stand Alone Forms: [facility] Prescriptions Prescriptions: No Action doxycycline hyclate 100 mg tablet 100 mg PO BID 14 Days Qty: 28 RF: 0 cholecalciferol (vitamin D3) 50 mcg (2,000 unit) capsule 50 mcg PO DAILY Qty: 30 RF: 0 hydrocortisone 2.5 % cream with perineal applicator 1 applic LA DAILY PRN (Reason: irritation) Qty: 30 RF: 0 diclofenac sodium 1 % gel 2 gm TOP QID PRN (Reason: Back Pain) RF: 0 valacyclovir 1 gram tablet 2,000 mg PO Q12H PRN (Reason: cold sore) Qty: 30 RF: 5 carbamazepine 200 mg tablet 200 mg PO BID RF: 0 acetaminophen [Tylenol Extra Strength] 500 mg Tablet 1,000 mg PO DIRECTED PRN (Reason: Pain) RF: 0 Pennsaid 2 % Solution In Packet 1 packet TOPICAL BID PRN (Reason: FOOT PAIN) RF: 0 omeprazole 20 mg capsule,delayed release(DR/EC) 20 mg PO Q OTHER DAY RF: 0 cholestyramine (with sugar) 4 gram powder in packet 4 gm PO .COMPLEX PRN (Reason: Diarrhea) RF: 0 clonazepam 0.25 mg tablet,disintegrating 0.25 mg translingual DIRECTED PRN (Reason: Pain BREAK THROUGH) RF: 0
--- NOTE | 2020-05-15 20:13 | History & Physical Report ---
Date of Service May 15, 2020 Assessment & Plan (1) COVID-19: Patient afebrile, HD stable, no respiratory distress at present. Oxygenating well on room air - 98% -Admit to medical with telemetry -Maintain airborne and contact precautions -Patient does not meet requirements for Dexamethasone or Remdesivir as she is not hypoxic -We discussed convalescent plasma use - patient would like to think about it in more depth before transfusion -Continue Pepcid 20mg po - change from every other day to daily -Zinc supplementation -Continue vitamin D supplementation -Lovenox 40mg BID Present on Admission?: Yes (2) New onset left bundle branch block (LBBB): Patient with three weeks of upper chest discomfort. Presently CP free. New LBBB present on EKG. Troponin and BNP are unremarkable. Patient presently CP free. -Admit to medical with telemetry -Check 2D echo -Cardiology consultation appreciated Present on Admission?: Yes (3) Trigeminal neuralgia: Chronic. Stable -Continue Tegretol 200mg po BID. Even dose given in ER. Present on Admission?: Yes (4) GERD without esophagitis: Chronic -Continue Pepcid F/E/N - Heplock. Electrolytes WNL. Regular diet as tolerated Ppx - Lovenox 40mg BID Code - Full Dispo - Admit to medical with telemetry History of Present Illness Chief Complaint: Covid-19 infection Primary Care Provider: DO Racquel Caba is a 49yo female presenting with Covid-19 infection. Patient reports approximately one month of feeling ill to include extreme fatigue and weakness, malaise, subjective fevers and chills, diffuse abdominal pain, nausea, vomiting and diarrhea. Patient's partner was ill with similar symptoms at the beginning of April - patient and her partner were tested for Covid-19 on 04/20/20 by nasopharyngeal swab and were both found to be negative. Patient's symptoms have been progressive for the last 4 weeks. She has had 3 weeks of upper chest discomfort and tightness as well as worsening SHEPPARD and SOB over the last week. She was seen by her PCP on 05/12/20 with these complaints. She had a comprehensive workup sent which revealed leukopenia with WBC=2.54, leukopenia and neutopenia at that time. Chemistry panel, electrolytes, renal function, LFTs within normal range with exception of elevated AP of 124. Vitamin D low at 16.3. C. diff, Lyme negative. On arrival to the ER she was found to be afebrile, hemodynamically stable, no respiratory distress. Adequate oxygenation on room air. Covid-19 by [facility] respiratory panel POSITIVE. ER Course: Tylenol 1gm IV, Tegretol 200mg po, Benadryl 25mg IV, Pepcid 20mg IV, Prochlorperazine, NSS x 2L Allergies Allergy/AdvReac Type Severity Reaction Status Date / Time pollen extracts Allergy Intermediate POLLEN,DUST,GRASS-ITCHY Verified 05/15/20 17:03 EYES, STUFFY NOSE doxycycline AdvReac Intermediate NAUSEA Verified 05/15/20 17:03 tetracycline AdvReac Intermediate nausea Verified 05/15/20 17:03 Home Medications Home Medications Medication Instructions Recorded Confirmed Type diclofenac sodium 1 % topical gel 2 gm TOP QID PRN 11/12/19 05/15/20 History valacyclovir 1 gram tablet 2,000 mg PO Q12H PRN #30 tab 11/12/19 05/15/20 Rx carbamazepine 200 mg tablet 200 mg PO BID tab 12/31/19 05/15/20 History acetaminophen [Tylenol Extra 1,000 mg PO DIRECTED PRN 04/20/20 05/15/20 History Strength] cholestyramine (with sugar) 4 gm PO .COMPLEX PRN 04/20/20 05/15/20 History diclofenac sodium [Pennsaid] 1 packet TOPICAL BID PRN 04/20/20 05/15/20 History omeprazole 20 mg PO Q OTHER DAY 04/20/20 05/15/20 History cholecalciferol (vitamin D3) 50 50 mcg PO DAILY #30 cap 05/12/20 05/15/20 Rx mcg (2,000 unit) capsule doxycycline hyclate 100 mg tablet 100 mg PO BID 14 Days #28 tab 05/12/20 05/15/20 Rx hydrocortisone 2.5 % topical cream 1 applic NV DAILY PRN #30 g 05/13/20 05/15/20 Rx with perineal applicator clonazepam 0.25 mg TRANSLINGUAL DIRECTED 05/15/20 05/15/20 History PRN Past Med/Surg History Medical History (Updated 05/15/20 @ 19:11 by Josh Amso MD) 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 H/O: hysterectomy (2006) History of appendectomy S/P small bowel resection (2012) secondary to carcinoid tumor, small bowel resection and ileocolectomy S/P tonsillectomy and adenoidectomy Status post lumbar surgery (2015) diskectomy and fusion Family History Mother Anxiety Gallbladder disease Father Bradycardia Brother Bradycardia Uncle Prostate cancer Family/Other Breast cancer Denies family history of Ovarian cancer Myocardial infarction Colorectal cancer Social History Smoking Status: Never smoker Hx Alcohol Use: No Hx Substance Use: No Preferred Language: Sinhala Communication Ability: Effective Visual Impairment: No Limitations Hearing Ability: Normal Beliefs That Will Affect Care: None marital status: marital status details: Lives with Partner. 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 Feels Safe at Home: Yes Childhood Exposure to Second-Hand Smoke: No caffeine: Yes (Coffee x 4-5 ) during the past year weight has: remained stable Dental Care, Regularly: Yes Physical Activity Frequency: 1-2 Times per Week Seatbelt Use: always Sunscreen Use: Yes Review of Systems Review of Systems: All systems reviewed & are unremarkable except as noted in HPI & below Physical Exam Physical Exam: General: patient resting comfortably, NAD, non-toxic in appearance but appears fatigued, AA&O x 4 Skin: warm, dry, intact, no rashes or lesions HEENT: NC/AT, PERRL, anicteric sclera, conjunctiva without injection, external ear normal to inspection and nontender, nares patent, moist mucus membranes, dentition intact, no oropharyngeal lesions, neck supple, trachea midline, no LAD, no thyromegaly, no JVD Heart: +S1/S2, regular, no m/r/g Lungs: equal air entry bilaterally, no rales/rhonchi/wheezes Abd: +BS, soft, NT/ND, no masses/organomegaly/ascites Ext: warm, 2+ pulses in UE/LE bilaterally, no clubbing/cyanosis or edema Neuro: nonfocal, patient AA&O x 4, speech intact, no facial droop, moving all extremities on command with equal strength 5/5 Results & Data Results & Data ([facility]) Vital Signs (Past 12 Hours) Vital Signs Temp Pulse Resp BP Pulse Ox 05/15/20 19:00 148/100 H 05/15/20 18:06 54 L 16 165/91 H 98 05/15/20 17:01 60 18 136/75 99 05/15/20 16:55 54 L 17 146/75 H 97 05/15/20 15:53 59 L 13 128/73 96 05/15/20 14:54 36.7 C 65 18 131/83 99 Laboratory Results Lab Results 05/15/20 05/15/20 05/15/20 Range/Units 15:30 15:35 15:35 WBC 3.84 L (4.8-10.8) K/uL RBC 5.35 (4.2-5.4) M/uL Hgb 15.6 (12.0-16.0) g/dL Hct 45.5 (37-47) % MCV 85.0 (80-100) fL MCH 29.2 (25-34) pg MCHC 34.3 (32-36) g/dL RDW Std Deviation 42.7 (36.4-46.3) fL RDW Coeff of Dottie 13.7 (11.5-14.5) % Plt Count 157 (130-400) K/uL MPV 10.6 H (7.4-10.4) fL Immature Gran % (Auto) 0.0 % Neut % (Auto) 60.4 % Lymph % (Auto) 22.7 % Perkins % (Auto) 15.6 % Eos % (Auto) 1.0 % Baso % (Auto) 0.3 % Neut # (Auto) 2.32 (1.4-6.5) K/uL Lymph # (Auto) 0.87 L (1.2-3.4) K/uL Perkins # (Auto) 0.60 H (0.11-0.59) K/uL Eos # (Auto) 0.04 (0-0.5) K/uL Baso # (Auto) 0.01 (0-0.2) K/uL Immature Gran # (Auto) 0.00 (0.00-0.02) K/uL PT (9.0-12.0) Seconds INR (0.9-1.1) APTT (21.0-31.0) Seconds PTT Ratio D-Dimer (0-500) ug/L FEU Sodium 140 (136-145) mmol/L Potassium 3.6 (3.5-5.1) mmol/L Chloride 103 (98-107) mmol/L Carbon Dioxide 31 (21-32) mmol/L Anion Gap 6.0 (3-11) BUN 10 (7-18) mg/dl Creatinine 0.74 (0.6-1.2) mg/dl Est Cr Clr Drug Dosing 107.7 ml/min Est GFR ( Amer) 110.3 Est GFR (Non-Af Amer) 95.1 BUN/Creatinine Ratio 13.9 (10-20) Glucose 82 (70-99) mg/dl Lactate (0.4-2.0) mmol/L Calcium 9.5 (8.5-10.1) mg/dl Phosphorus 2.8 (2.5-4.9) mg/dl Magnesium 2.1 (1.8-2.4) mg/dl Total Bilirubin 0.3 (0.2-1) mg/dl Direct Bilirubin 0.1 (0-0.2) mg/dl AST 27 (15-37) U/L ALT 37 (12-78) U/L Alkaline Phosphatase 147 H (45-117) U/L Troponin I < 0.015 (0-0.045) ng/ml NT-Pro-B Natriuret Pep 36 (0-450) pg/ml Total Protein 7.4 (6.4-8.2) gm/dl Albumin 3.9 (3.4-5.0) gm/dl Globulin 3.5 (2.5-4.0) gm/dl Albumin/Globulin Ratio 1.1 (0.9-2) Procalcitonin (0-0.5) ng/ml TSH 2.210 (0.300-4.500) uIu/ml Urine Color Yellow Urine Appearance Clear (Clear) Urine pH 7.0 (4.5-7.5) Ur Specific [place] 1.014 (1.000-1.030) Urine Protein Negative (Negative) Urine Glucose (UA) Negative (Negative) Urine Ketones Negative (Negative) Urine Blood Negative (Negative) Urine Nitrite Negative (Negative) Urine Bilirubin Negative (Negative) Urine Urobilinogen Negative (Negative) Ur Leukocyte Esterase Negative (Negative) Adenovirus (PCR) (NotDetected) Anaplasma Smear See Comment B. pertussis DNA (PCR) (NotDetected) B.parapertussis DNA PCR (NotDetected) C. pneumoniae DNA (PCR) (NotDetected) Coronavirus OC43 (PCR) (NotDetected) Coronavirus HKU1 (PCR) (NotDetected) Coronavirus 229E (PCR) (NotDetected) COVID-19 PCR (NotDetected) Coronavirus NL63 (PCR) (NotDetected) Monoscreen (Negative) Human Metapneumovir PCR (NotDetected) Influenza Type A (PCR) (NotDetected) Influenza Type B (PCR) (NotDetected) M. pneumoniae (PCR) (NotDetected) Parainfluenza 1 (PCR) (NotDetected) Parainfluenza 2 (PCR) (NotDetected) Parainfluenza 3 (PCR) (NotDetected) Parainfluenza 4 (PCR) (NotDetected) RSV (PCR) (NotDetected) Entero/Rhino (PCR) (NotDetected) 05/15/20 05/15/20 05/15/20 Range/Units 15:35 15:35 16:21 WBC (4.8-10.8) K/uL RBC (4.2-5.4) M/uL Hgb (12.0-16.0) g/dL Hct (37-47) % MCV (80-100) fL MCH (25-34) pg MCHC (32-36) g/dL RDW Std Deviation (36.4-46.3) fL RDW Coeff of Dottie (11.5-14.5) % Plt Count (130-400) K/uL MPV (7.4-10.4) fL Immature Gran % (Auto) % Neut % (Auto) % Lymph % (Auto) % Perkins % (Auto) % Eos % (Auto) % Baso % (Auto) % Neut # (Auto) (1.4-6.5) K/uL Lymph # (Auto) (1.2-3.4) K/uL Perkins # (Auto) (0.11-0.59) K/uL Eos # (Auto) (0-0.5) K/uL Baso # (Auto) (0-0.2) K/uL Immature Gran # (Auto) (0.00-0.02) K/uL PT 10.4 (9.0-12.0) Seconds INR 1.0 (0.9-1.1) APTT 28.0 (21.0-31.0) Seconds PTT Ratio 1.0 D-Dimer 220 (0-500) ug/L FEU Sodium (136-145) mmol/L Potassium (3.5-5.1) mmol/L Chloride (98-107) mmol/L Carbon Dioxide (21-32) mmol/L Anion Gap (3-11) BUN (7-18) mg/dl Creatinine (0.6-1.2) mg/dl Est Cr Clr Drug Dosing ml/min Est GFR ( Amer) Est GFR (Non-Af Amer) BUN/Creatinine Ratio (10-20) Glucose (70-99) mg/dl Lactate 0.9 (0.4-2.0) mmol/L Calcium (8.5-10.1) mg/dl Phosphorus (2.5-4.9) mg/dl Magnesium (1.8-2.4) mg/dl Total Bilirubin (0.2-1) mg/dl Direct Bilirubin (0-0.2) mg/dl AST (15-37) U/L ALT (12-78) U/L Alkaline Phosphatase (45-117) U/L Troponin I (0-0.045) ng/ml NT-Pro-B Natriuret Pep (0-450) pg/ml Total Protein (6.4-8.2) gm/dl Albumin (3.4-5.0) gm/dl Globulin (2.5-4.0) gm/dl Albumin/Globulin Ratio (0.9-2) Procalcitonin < 0.05 (0-0.5) ng/ml TSH (0.300-4.500) uIu/ml Urine Color Urine Appearance (Clear) Urine pH (4.5-7.5) Ur Specific [place] (1.000-1.030) Urine Protein (Negative) Urine Glucose (UA) (Negative) Urine Ketones (Negative) Urine Blood (Negative) Urine Nitrite (Negative) Urine Bilirubin (Negative) Urine Urobilinogen (Negative) Ur Leukocyte Esterase (Negative) Adenovirus (PCR) (NotDetected) Anaplasma Smear B. pertussis DNA (PCR) (NotDetected) B.parapertussis DNA PCR (NotDetected) C. pneumoniae DNA (PCR) (NotDetected) Coronavirus OC43 (PCR) (NotDetected) Coronavirus HKU1 (PCR) (NotDetected) Coronavirus 229E (PCR) (NotDetected) COVID-19 PCR (NotDetected) Coronavirus NL63 (PCR) (NotDetected) Monoscreen Negative (Negative) Human Metapneumovir PCR (NotDetected) Influenza Type A (PCR) (NotDetected) Influenza Type B (PCR) (NotDetected) M. pneumoniae (PCR) (NotDetected) Parainfluenza 1 (PCR) (NotDetected) Parainfluenza 2 (PCR) (NotDetected) Parainfluenza 3 (PCR) (NotDetected) Parainfluenza 4 (PCR) (NotDetected) RSV (PCR) (NotDetected) Entero/Rhino (PCR) (NotDetected) 05/15/20 Range/Units 16:30 WBC (4.8-10.8) K/uL RBC (4.2-5.4) M/uL Hgb (12.0-16.0) g/dL Hct (37-47) % MCV (80-100) fL MCH (25-34) pg MCHC (32-36) g/dL RDW Std Deviation (36.4-46.3) fL RDW Coeff of Dottie (11.5-14.5) % Plt Count (130-400) K/uL MPV (7.4-10.4) fL Immature Gran % (Auto) % Neut % (Auto) % Lymph % (Auto) % Perkins % (Auto) % Eos % (Auto) % Baso % (Auto) % Neut # (Auto) (1.4-6.5) K/uL Lymph # (Auto) (1.2-3.4) K/uL Perkins # (Auto) (0.11-0.59) K/uL Eos # (Auto) (0-0.5) K/uL Baso # (Auto) (0-0.2) K/uL Immature Gran # (Auto) (0.00-0.02) K/uL PT (9.0-12.0) Seconds INR (0.9-1.1) APTT (21.0-31.0) Seconds PTT Ratio D-Dimer (0-500) ug/L FEU Sodium (136-145) mmol/L Potassium (3.5-5.1) mmol/L Chloride (98-107) mmol/L Carbon Dioxide (21-32) mmol/L Anion Gap (3-11) BUN (7-18) mg/dl Creatinine (0.6-1.2) mg/dl Est Cr Clr Drug Dosing ml/min Est GFR ( Amer) Est GFR (Non-Af Amer) BUN/Creatinine Ratio (10-20) Glucose (70-99) mg/dl Lactate (0.4-2.0) mmol/L Calcium (8.5-10.1) mg/dl Phosphorus (2.5-4.9) mg/dl Magnesium (1.8-2.4) mg/dl Total Bilirubin (0.2-1) mg/dl Direct Bilirubin (0-0.2) mg/dl AST (15-37) U/L ALT (12-78) U/L Alkaline Phosphatase (45-117) U/L Troponin I (0-0.045) ng/ml NT-Pro-B Natriuret Pep (0-450) pg/ml Total Protein (6.4-8.2) gm/dl Albumin (3.4-5.0) gm/dl Globulin (2.5-4.0) gm/dl Albumin/Globulin Ratio (0.9-2) Procalcitonin (0-0.5) ng/ml TSH (0.300-4.500) uIu/ml Urine Color Urine Appearance (Clear) Urine pH (4.5-7.5) Ur Specific [place] (1.000-1.030) Urine Protein (Negative) Urine Glucose (UA) (Negative) Urine Ketones (Negative) Urine Blood (Negative) Urine Nitrite (Negative) Urine Bilirubin (Negative) Urine Urobilinogen (Negative) Ur Leukocyte Esterase (Negative) Adenovirus (PCR) Not Detected (NotDetected) Anaplasma Smear B. pertussis DNA (PCR) Not Detected (NotDetected) B.parapertussis DNA PCR Not Detected (NotDetected) C. pneumoniae DNA (PCR) Not Detected (NotDetected) Coronavirus OC43 (PCR) Not Detected (NotDetected) Coronavirus HKU1 (PCR) Not Detected (NotDetected) Coronavirus 229E (PCR) Not Detected (NotDetected) COVID-19 PCR DETECTED A* (NotDetected) Coronavirus NL63 (PCR) Not Detected (NotDetected) Monoscreen (Negative) Human Metapneumovir PCR Not Detected (NotDetected) Influenza Type A (PCR) Not Detected (NotDetected) Influenza Type B (PCR) Not Detected (NotDetected) M. pneumoniae (PCR) Not Detected (NotDetected) Parainfluenza 1 (PCR) Not Detected (NotDetected) Parainfluenza 2 (PCR) Not Detected (NotDetected) Parainfluenza 3 (PCR) Not Detected (NotDetected) Parainfluenza 4 (PCR) Not Detected (NotDetected) RSV (PCR) Not Detected (NotDetected) Entero/Rhino (PCR) Not Detected (NotDetected) Diagnostic Findings ABDOMEN AND PELVIS CT WITHOUT CONTRAST CT DOSE: 1098.47 mGy.cm HISTORY: Generalized abdominal pain. R19.7 - Diarrhea, unspecified TECHNIQUE: Multiaxial CT images of the abdomen and pelvis were performed without contrast. A dose lowering technique was utilized adhering to the principles of ALARA. COMPARISON STUDY: None. FINDINGS: There is a 9 mm groundglass nodule within the right middle lobe on im age 32, 6 mm groundglass nodule within the lingula on image 15, and a 7 mm groundglass nodule within the left lower lobe on image 3. No pneumoperitoneum. No pneumatosis. L5-S1 posterior decompression fusion with pedicle screws and rods. No suspicious lytic or blastic osseous lesions. Moderate size fat- containing umbilical/. Umbilical hernia. This measures 5.5 cm. Mild hepatic steatosis. The unenhanced gallbladder, pancreas, spleen, adrenal glands, and left kidney are unremarkable. There are few subcentimeter hypodense lesions within the right kidney. These are incompletely characterized on this noncontrast study is statistically represent cysts. No renal or ureteral stones. No hydronephrosis. No retroperitoneal lymphadenopathy. Normal caliber abdominal aorta. The bladder is not well-distended but appears unremarkable. The uterus is surgically absent. Suboptimal evaluation for bowel pathology due to the lack of intravenous and oral contrast. However, there is no definite bowel wall thic kening or obstruction. Prior right hemicolectomy with ileocolonic anastomosis. Therefore, the appendix is surgically absent. IMPRESSION: 1. No bowel wall thickening or obstruction. 2. Right hemicolectomy with ileocolonic anastomosis. 3. Mild hepatic steatosis. 4. No hydronephrosis. 5. A 5.5 cm fat-containing umbilical/periumbilical hernia. 6. A few subcentimeter groundglass nodules within the lung bases as described above. This favors mild inflammatory/infectious change. However, a 3-[address] follow up recommended to ensure resolution. ACT 112: Positive. There are findings on this exam that require communication between the performing entity and the patient following Patient Test Result Information Act ([place] Act 112) guidelines. Electronically signed by: Arik Contreras M.D. 05/12/2020 10:48 AM Dictated: 05/12/20 1040 Transcribed: 05/12/20 1040 ECG Additional Comments: DICTATED BY: Devin Spence MD Test Reason : Blood Pressure : / mmHG Vent. Rate : 050 BPM Atrial Rate : 050 BPM P-R Int : 162 ms QRS Dur : 144 ms QT Int : 442 ms P-R-T Axes : 046 006 122 degrees QTc Int : 402 ms Sinus bradycardia Left bundle branch block Abnormal ECG When compared with ECG of 26-JUL-2019 01:12, Left bundle branch block is now Present Confirmed by Devin Spence ([id number]) on 05/15/2020 4:52:57 PM Referred By: Confirmed By:Manny Spence Code Status & VTE Plan VTE Prophylaxis Plan VTE Prophylaxis will be ordered: Yes PG Care Time/CCT Total # of Minutes Spent Total Time Spent with Patient: Total time spent is greater than 50% in coordination of care (as documented) at patient's floor/unit and/or counseling patient: Coding Level of Care Code 53495 Initial Inpt Care Lvl 3 Diagnoses COVID-19 U07.1 New onset left bundle branch block (LBBB) I44.7 Trigeminal neuralgia G50.0 GERD without esophagitis K21.9
[2020-05-15] MEDS ORDERED: carBAMazepine 200 MG TABLET PO ONE (22:59)
[2020-05-16] MEDS ORDERED: ACETAMINOPHEN 325 MG TAB PO PRN (01:45)
[2020-05-16] MEDS ORDERED: valACYclovir HCL 500 MG TABLET PO PRN (01:45)
[2020-05-16] MEDS ORDERED: HYDROCORTISONE HC 2.5% CRM 30GM TUBE EXT PRN (01:45)
[2020-05-16] MEDS ORDERED: clonazePAM 0.25 MG TAB PO PRN (01:45)
[2020-05-16] MEDS ORDERED: ONDANSETRON INJ 2 MG/ML 2 ML VIAL IV PRN (01:45)
[2020-05-16] MEDS ORDERED: DICLOFENAC SOD 1% GEL 100 GM TUBE EXT PRN (01:45)
[2020-05-16] MEDS ORDERED: FAMOTIDINE 20 MG TAB PO ONE (01:45)
[2020-05-16] MEDS: ENOXAPARIN INJ 40 MG/0.4 ML SYR SQ SCH ×2 (04:14→16:11)
[2020-05-16 07:36] LABS: Eosinophils # (auto) 0.02 K/uL (0-0.5); Eosinophils % (auto) 0.8 %; Immature Granulocytes # (auto) 0.01 K/uL (0.00-0.02); Immature Granulocytes % (auto) 0.4 %; Lymphocytes # (auto) 0.85 K/uL (1.2-3.4); Lymphocytes % (auto) 33.3 %; Mean Corpuscular Hemoglobin 28.9 pg (25-34); Mean Corpuscular Hgb Conc 34.1 g/dL (32-36); Mean Corpuscular Volume 84.7 fL (80-100); Mean Platelet Volume 10.4 fL (7.4-10.4); Monocytes # (auto) 0.36 K/uL (0.11-0.59); Monocytes % (auto) 14.1 %; Neutrophils # (auto) 1.31 K/uL (1.4-6.5); Neutrophils % (auto) 51.4 %; Platelet Count 141 K/uL (130-400); RDW Coefficient of Variation 13.8 % (11.5-14.5); RDW Standard Deviation 42.5 fL (36.4-46.3); Red Blood Count 4.84 M/uL (4.2-5.4); White Blood Count 2.55 K/uL (4.8-10.8)
[2020-05-16 07:54] LABS: BUN Creatinine Ratio 10.9 (10-20); Calcium 8.7 mg/dl (8.5-10.1); Creatinine Clr Calc Pharmacy 126.7 ml/min; Est GFR (African American) 122.1; Est GFR (Non-African American) 105.3; Potassium 3.8 mmol/L (3.5-5.1)
[2020-05-16] MEDS ORDERED: ZINC SULFATE 220 MG CAPSULE PO SCH (09:00)
[2020-05-16] MEDS ORDERED: CHOLECALCIFEROL 1,000 UNITS 25 MCG TAB PO SCH (09:00)
[2020-05-16] MEDS ORDERED: carBAMazepine 200 MG TABLET PO SCH (09:00)
--- NOTE | 2020-05-16 14:20 | XCELERA ---
[id number]
--- NOTE | 2020-05-16 14:32 | Cardiology Consultation ---
Date of Consultation May 16, 2020 Assessment & Plan (1) Atypical chest pain: Her symptoms are decidedly noncardiac. She has a chronic component without elevation in her biomarkers. Additionally, the symptoms are not worsened by activity and appear to improve with physical maneuver such as pressure on the chest. They are worse with deep breathing. Possibly related to her viral syndrome. (2) New onset left bundle branch block (LBBB): An EKG in July of this year was normal. The chronicity of the bundle branch block is unclear. She does not appear to have myocarditis. Her echocardiogram is normal without evidence of cardiomyopathy. This is unlikely to be associated with her carcinoid. We will screen her for Lyme disease. Other potential etiologies would be sarcoid, another infiltrative process such as amyloid or ischemic heart disease. She does not appear to have symptoms of ischemic heart disease. There was no other evidence of an infiltrative process. Think we can defer any additional evaluation till she recovers from her viral illness. She claims to have had stress testing and prior cardiac evaluation elsewhere we will obtain these records. (3) Carcinoid tumor: No evidence of valvular heart disease on her echocardiogram performed today. History of Present Illness Reason for Consultation: Abnormal EKG, chest pain Requesting Physician: Jesse Attending Physician: Yoshi Nails MD History of Present Illness The patient is a 49-year-old woman without a known history of cardiac disease who has been experiencing diffuse symptoms of malaise, fatigue, chest discomfort and exercise intolerance. She believes the symptoms started approximately 3 and half weeks ago. Her chest pain was characterized by discomfort in the precordium with radiation to the back. This is an aching type sensation in his present nearly all of the time. There is some improvement in symptoms with pressure on the chest. There is not appear to be a positional component but deep inspiration also causes some discomfort. The patient did not endorse worsening of her symptoms with activity although she admits to being very sedentary. She has had additional symptoms such as fevers and chills. She also noticed a electrical sensation that went from her neck to the tips of her fingers which occurred repeatedly over the course of a single day. She does report undergoing stress testing previously. She believes this occurred approximately 3 years ago. She apparently did quite well on that test and generally did not have symptoms associated with activity. More recently she has had some shortness of breath ECHO with activity that she attributes to being more sedentary in getting older. She has also gained some weight over the past few years. Allergies Allergy/AdvReac Type Severity Reaction Status Date / Time pollen extracts Allergy Intermediate POLLEN,DUST,GRASS-ITCHY Verified 05/15/20 17:03 EYES, STUFFY NOSE doxycycline AdvReac Intermediate NAUSEA Verified 05/15/20 17:03 tetracycline AdvReac Intermediate nausea Verified 05/15/20 17:03 Home Medications Home Medications Medication Instructions Recorded Confirmed Type diclofenac sodium 1 % topical gel 2 gm TOP QID PRN 11/12/19 05/15/20 History valacyclovir 1 gram tablet 2,000 mg PO Q12H PRN #30 tab 11/12/19 05/15/20 Rx carbamazepine 200 mg tablet 200 mg PO BID tab 12/31/19 05/15/20 History acetaminophen [Tylenol Extra 1,000 mg PO DIRECTED PRN 04/20/20 05/15/20 History Strength] cholestyramine (with sugar) 4 gm PO .COMPLEX PRN 04/20/20 05/15/20 History diclofenac sodium [Pennsaid] 1 packet TOPICAL BID PRN 04/20/20 05/15/20 History omeprazole 20 mg PO Q OTHER DAY 04/20/20 05/15/20 History cholecalciferol (vitamin D3) 50 50 mcg PO DAILY #30 cap 05/12/20 05/15/20 Rx mcg (2,000 unit) capsule doxycycline hyclate 100 mg tablet 100 mg PO BID 14 Days #28 tab 05/12/20 05/15/20 Rx hydrocortisone 2.5 % topical cream 1 applic RI DAILY PRN #30 g 05/13/20 05/15/20 Rx with perineal applicator clonazepam 0.25 mg TRANSLINGUAL DIRECTED 05/15/20 05/15/20 History PRN Patient History Medical History 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 H/O: hysterectomy (2006) History of appendectomy S/P small bowel resection (2012) secondary to carcinoid tumor, small bowel resection and ileocolectomy S/P tonsillectomy and adenoidectomy Status post lumbar surgery (2015) diskectomy and fusion Family History Mother Anxiety Gallbladder disease Father Bradycardia Brother Bradycardia Uncle Prostate cancer Family/Other Breast cancer Denies family history of Ovarian cancer Myocardial infarction Colorectal cancer Social History Smoking Status: Never smoker Hx Alcohol Use: No Hx Substance Use: No Preferred Language: Slovenian Communication Ability: Effective Visual Impairment: No Limitations Hearing Ability: Normal Manager Port Required: Yes Beliefs That Will Affect Care: None marital status: marital status details: Lives with Partner. 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 Previously this is manifest by flushing, diarrhea alternating with constipation. She occasionally still has some difficulty with her bowels that is treated with cholestyramine. Physical Exam Physical Exam: Deferred. This consultation was performed over the phone as the patient is currently in isolation due to COVID 19 Results & Data ([facility]) Vital Signs (Past 12 Hours) Vital Signs Temp Pulse Pulse Resp BP Pulse Ox 05/16/20 11:54 36.3 C L 56 L 18 128/83 98 05/16/20 09:58 36.9 C 05/16/20 08:01 36.9 C 65 20 157/86 H 99 05/16/20 03:44 37 C 50 L 18 123/72 98 05/16/20 02:31 55 L Laboratory Results Abnormal Lab Results 05/15/20 05/15/20 05/15/20 15:30 15:35 15:35 WBC 3.84 L RBC 5.35 Hgb 15.6 Hct 45.5 MCV 85.0 MCH 29.2 MCHC 34.3 RDW Std Deviation 42.7 RDW Coeff of Dottie 13.7 Plt Count 157 MPV 10.6 H Immature Gran % (Auto) 0.0 Neut % (Auto) 60.4 Lymph % (Auto) 22.7 Dunn % (Auto) 15.6 Eos % (Auto) 1.0 Baso % (Auto) 0.3 Neut # (Auto) 2.32 Lymph # (Auto) 0.87 L Dunn # (Auto) 0.60 H Eos # (Auto) 0.04 Baso # (Auto) 0.01 Immature Gran # (Auto) 0.00 ESR PT INR APTT PTT Ratio D-Dimer Sodium 140 Potassium 3.6 Chloride 103 Carbon Dioxide 31 Anion Gap 6.0 BUN 10 Creatinine 0.74 Est Cr Clr Drug Dosing 107.7 Est GFR ( Amer) 110.3 Est GFR (Non-Af Amer) 95.1 BUN/Creatinine Ratio 13.9 Glucose 82 Lactate Calcium 9.5 Phosphorus 2.8 Magnesium 2.1 Total Bilirubin 0.3 Direct Bilirubin 0.1 AST 27 ALT 37 Alkaline Phosphatase 147 H Total Creatine Kinase Troponin I < 0.015 NT-Pro-B Natriuret Pep 36 Total Protein 7.4 Albumin 3.9 Globulin 3.5 Albumin/Globulin Ratio 1.1 Procalcitonin TSH 2.210 Urine Color Yellow Urine Appearance Clear Urine pH 7.0 Ur Specific [place] 1.014 Urine Protein Negative Urine Glucose (UA) Negative Urine Ketones Negative Urine Blood Negative Urine Nitrite Negative Urine Bilirubin Negative Urine Urobilinogen Negative Ur Leukocyte Esterase Negative Adenovirus (PCR) Anaplasma Smear See Comment B. pertussis DNA (PCR) B.parapertussis DNA PCR C. pneumoniae DNA (PCR) Coronavirus OC43 (PCR) Coronavirus HKU1 (PCR) Coronavirus 229E (PCR) COVID-19 PCR Coronavirus NL63 (PCR) Monoscreen Human Metapneumovir PCR Influenza Type A (PCR) Influenza Type B (PCR) M. pneumoniae (PCR) Parainfluenza 1 (PCR) Parainfluenza 2 (PCR) Parainfluenza 3 (PCR) Parainfluenza 4 (PCR) RSV (PCR) Entero/Rhino (PCR) 05/15/20 05/15/20 05/15/20 15:35 15:35 16:21 WBC RBC Hgb Hct MCV MCH MCHC RDW Std Deviation RDW Coeff of Dottie Plt Count MPV Immature Gran % (Auto) Neut % (Auto) Lymph % (Auto) Dunn % (Auto) Eos % (Auto) Baso % (Auto) Neut # (Auto) Lymph # (Auto) Dunn # (Auto) Eos # (Auto) Baso # (Auto) Immature Gran # (Auto) ESR PT 10.4 INR 1.0 APTT 28.0 PTT Ratio 1.0 D-Dimer 220 Sodium Potassium Chloride Carbon Dioxide Anion Gap BUN Creatinine Est Cr Clr Drug Dosing Est GFR ( Amer) Est GFR (Non-Af Amer) BUN/Creatinine Ratio Glucose Lactate 0.9 Calcium Phosphorus Magnesium Total Bilirubin Direct Bilirubin AST ALT Alkaline Phosphatase Total Creatine Kinase Troponin I NT-Pro-B Natriuret Pep Total Protein Albumin Globulin Albumin/Globulin Ratio Procalcitonin < 0.05 TSH Urine Color Urine Appearance Urine pH Ur Specific [place] Urine Protein Urine Glucose (UA) Urine Ketones Urine Blood Urine Nitrite Urine Bilirubin Urine Urobilinogen Ur Leukocyte Esterase Adenovirus (PCR) Anaplasma Smear B. pertussis DNA (PCR) B.parapertussis DNA PCR C. pneumoniae DNA (PCR) Coronavirus OC43 (PCR) Coronavirus HKU1 (PCR) Coronavirus 229E (PCR) COVID-19 PCR Coronavirus NL63 (PCR) Monoscreen Negative Human Metapneumovir PCR Influenza Type A (PCR) Influenza Type B (PCR) M. pneumoniae (PCR) Parainfluenza 1 (PCR) Parainfluenza 2 (PCR) Parainfluenza 3 (PCR) Parainfluenza 4 (PCR) RSV (PCR) Entero/Rhino (PCR) 05/15/20 05/16/20 05/16/20 16:30 07:03 07:03 WBC 2.55 L RBC 4.84 Hgb 14.0 Hct 41.0 MCV 84.7 MCH 28.9 MCHC 34.1 RDW Std Deviation 42.5 RDW Coeff of Dottie 13.8 Plt Count 141 MPV 10.4 Immature Gran % (Auto) 0.4 Neut % (Auto) 51.4 Lymph % (Auto) 33.3 Dunn % (Auto) 14.1 Eos % (Auto) 0.8 Baso % (Auto) 0.0 Neut # (Auto) 1.31 L Lymph # (Auto) 0.85 L Dunn # (Auto) 0.36 Eos # (Auto) 0.02 Baso # (Auto) 0.00 Immature Gran # (Auto) 0.01 ESR PT INR APTT PTT Ratio D-Dimer Sodium 141 Potassium 3.8 Chloride 108 H Carbon Dioxide 27 Anion Gap 6.0 BUN 7 Creatinine 0.63 Est Cr Clr Drug Dosing 126.7 Est GFR ( Amer) 122.1 Est GFR (Non-Af Amer) 105.3 BUN/Creatinine Ratio 10.9 Glucose 86 Lactate Calcium 8.7 Phosphorus Magnesium Total Bilirubin Direct Bilirubin AST ALT Alkaline Phosphatase Total Creatine Kinase 46 Troponin I NT-Pro-B Natriuret Pep Total Protein Albumin Globulin Albumin/Globulin Ratio Procalcitonin TSH Urine Color Urine Appearance Urine pH Ur Specific [place] Urine Protein Urine Glucose (UA) Urine Ketones Urine Blood Urine Nitrite Urine Bilirubin Urine Urobilinogen Ur Leukocyte Esterase Adenovirus (PCR) Not Detected Anaplasma Smear B. pertussis DNA (PCR) Not Detected B.parapertussis DNA PCR Not Detected C. pneumoniae DNA (PCR) Not Detected Coronavirus OC43 (PCR) Not Detected Coronavirus HKU1 (PCR) Not Detected Coronavirus 229E (PCR) Not Detected COVID-19 PCR DETECTED A* Coronavirus NL63 (PCR) Not Detected Monoscreen Human Metapneumovir PCR Not Detected Influenza Type A (PCR) Not Detected Influenza Type B (PCR) Not Detected M. pneumoniae (PCR) Not Detected Parainfluenza 1 (PCR) Not Detected Parainfluenza 2 (PCR) Not Detected Parainfluenza 3 (PCR) Not Detected Parainfluenza 4 (PCR) Not Detected RSV (PCR) Not Detected Entero/Rhino (PCR) Not Detected 05/16/20 07:03 WBC RBC Hgb Hct MCV MCH MCHC RDW Std Deviation RDW Coeff of Dottie Plt Count MPV Immature Gran % (Auto) Neut % (Auto) Lymph % (Auto) Dunn % (Auto) Eos % (Auto) Baso % (Auto) Neut # (Auto) Lymph # (Auto) Dunn # (Auto) Eos # (Auto) Baso # (Auto) Immature Gran # (Auto) ESR 2 PT INR APTT PTT Ratio D-Dimer Sodium Potassium Chloride Carbon Dioxide Anion Gap BUN Creatinine Est Cr Clr Drug Dosing Est GFR ( Amer) Est GFR (Non-Af Amer) BUN/Creatinine Ratio Glucose Lactate Calcium Phosphorus Magnesium Total Bilirubin Direct Bilirubin AST ALT Alkaline Phosphatase Total Creatine Kinase Troponin I NT-Pro-B Natriuret Pep Total Protein Albumin Globulin Albumin/Globulin Ratio Procalcitonin TSH Urine Color Urine Appearance Urine pH Ur Specific [place] Urine Protein Urine Glucose (UA) Urine Ketones Urine Blood Urine Nitrite Urine Bilirubin Urine Urobilinogen Ur Leukocyte Esterase Adenovirus (PCR) Anaplasma Smear B. pertussis DNA (PCR) B.parapertussis DNA PCR C. pneumoniae DNA (PCR) Coronavirus OC43 (PCR) Coronavirus HKU1 (PCR) Coronavirus 229E (PCR) COVID-19 PCR Coronavirus NL63 (PCR) Monoscreen Human Metapneumovir PCR Influenza Type A (PCR) Influenza Type B (PCR) M. pneumoniae (PCR) Parainfluenza 1 (PCR) Parainfluenza 2 (PCR) Parainfluenza 3 (PCR) Parainfluenza 4 (PCR) RSV (PCR) Entero/Rhino (PCR) Diagnostic Findings Echocardiogram obtained today revealed preserved LV systolic function without significant valvular heart disease. No pericardial effusion. Abdominal CT obtained several days ago revealed some likely inflammatory lower lung lesions but otherwise was unremarkable. Chest x-ray Was obtained at the time of admission which did not reveal any acute cardiopulmonary disease ECG Additional Comments: EKG obtained at the time of admission revealed normal sinus rhythm with left bundle branch block PG Care Time/CCT Total # of Minutes Spent Total Time Spent with Patient: Total time spent is greater than 50% in coordination of care (as documented) at patient's floor/unit and/or counseling patient: Coding Level of Care Code 27659 Office/OBS Consult Lvl 4 Diagnoses Atypical chest pain R07.89 New onset left bundle branch block (LBBB) I44.7 Carcinoid tumor D3A.00
--- NOTE | 2020-05-16 18:04 | Discharge Summary ---
Date of Service May 16, 2020 Admission HPI Per Admitting Provider Racquel Rey is a 49yo female presenting with Covid-19 infection. Patient reports approximately one month of feeling ill to include extreme fatigue and weakness, malaise, subjective fevers and chills, diffuse abdominal pain, nausea, vomiting and diarrhea. Patient's partner was ill with similar symptoms at the beginning of April - patient and her partner were tested for Covid-19 on 04/20/20 by nasopharyngeal swab and were both found to be negative. Patient's symptoms have been progressive for the last 4 weeks. She has had 3 weeks of upper chest discomfort and tightness as well as worsening SHEPPARD and SOB o eduardo the last week. She was seen by her PCP on 05/12/20 with these complaints. She had a comprehensive workup sent which revealed leukopenia with WBC=2.54, leukopenia and neutopenia at that time. Chemistry panel, electrolytes, renal function, LFTs within normal range with exception of elevated AP of 124. Vitamin D low at 16.3. C. diff, Lyme negative. On arrival to the ER she was found to be afebrile, hemodynamically stable, no respiratory distress. Adequate oxygenation on room air. Covid-19 by bio[facility] respiratory panel POSITIVE. ER Course: Tylenol 1gm IV, Tegretol 200mg po, Benadryl 25mg IV, Pepcid 20mg IV, Prochlorperazine, NSS x 2L Principal Diagnosis Atypical chest pain Left bundle branch block COVID-19 infection Discharge Exam Patient is alert appropriate she is did not appear short of breath She appeared to be comfortable and she is agreeable to going home Discharge Data Allergies Allergy/AdvReac Type Severity Reaction Status Date / Time pollen extracts Allergy Intermediate POLLEN,DUST,GRASS-ITCHY Verified 05/15/20 17:03 EYES, STUFFY NOSE doxycycline AdvReac Intermediate NAUSEA Verified 05/15/20 17:03 tetracycline AdvReac Intermediate nausea Verified 05/15/20 17:03 Consultations 05/15/20 18:58 ED Decision to Admit Stat 05/16/20 01:45 Consult Cardiology Routine Hospital Course (1) COVID-19: Patient afebrile, HD stable, no respiratory distress at present. Oxygenating well on room air - 98% -Patient did not meet requirements for Dexamethasone or Remdesivir as she is not hypoxic -Continue vitamin D supplementation Patient is recommended for isolation for 14 days to give instructions that if she worsens particularly with respiratory distress she is to repeat return to the emergency department for reevaluation (2) New onset left bundle branch block (LBBB): Patient with three weeks of upper chest discomfort. Presently CP free. New LBBB present on EKG. Troponin and BNP are unremarkable. Patient presently CP free. Cardiology reviewed echocardiogram. Previous Lyme studies have been negative. Echocardiogram is essentially normal per Dr. Spence (3) Trigeminal neuralgia: Chronic. Stable -Continue Tegretol 200mg po BID. Even dose given in ER. (4) GERD without esophagitis: Patient typically on acid suppressive medications. She also is a history of carcinoid but she says this has been stable for some time. Her bowel habits are now more frequent than typical attributing this to Covid. She had infectious studies of her bowel production which has been negative for concerns for infectious etiologies. Total Time Total Time Spent Total Time Spent (In Minutes): It required greater than 30 minutes to prepare this patient for discharge, this included discussion with Dr. Spence and education of the patient Discharge Plan Discharge Items Patient Disposition: Home - Self-Care Reason For Visit: COVID 19, NEW LBBB ON EKG Discharge Diagnosis: atypical chest pain new ecg change-Left Bundle Branch block Covid 19 positive test Activity: Per Instructions section Non-emergency contact: Primary Care Provider Call non-emergency contact if: you have any medication questions and your symptoms worsen Follow-up/Referrals: Trini Guidry DO [Primary Care Provider] - 05/22/20 9:20 am Diet: Regular Addtl Attending Provider Instructions: Home Isolation COVID-19 Instructions The following information about Home Isolation is from the CDC Website: https://www.cdc.gov/coronavirus/2019-ncov/hcp/gzorplss-vdzkfia-nlvqvj.html Stay home except to get medical care People who are mildly ill with COVID-19 are able to isolate at home during their illness. You should restrict activities outside your home, except for getting medical care. Do not go to work, school, or public areas. Avoid using public transportation, ride-sharing, or taxis. Separate yourself from other people and animals in your home People: As much as possible, you should stay in a specific room and away from other people in your home. Also, you should use a separate bathroom, if available. Animals: You should restrict contact with pets and other animals while you are sick with COVID-19, just like you would around other people. Although there have not been reports of pets or other animals becoming sick with COVID-19, it is still recommended that people sick with COVID-19 limit contact with animals until more information is known about the virus. When possible, have another member of your household care for your animals while you are sick. If you are sick with COVID-19, avoid contact with your pet, including petting, snuggling, being kissed or licked, and sharing food. If you must care for your pet or be around animals while you are sick, wash your hands before and after you interact with pets and wear a face mask. Call ahead before visiting your doctor If you have a medical appointment, call the healthcare provider and tell them that you have or may have COVID-19. This will help the healthcare providers office take steps to keep other people from getting infected or exposed. Wear a face mask You should wear a face mask when you are around other people (e.g., sharing a room or vehicle) or pets and before you enter a healthcare providers office. If you are not able to wear a face mask (for example, because it causes trouble br eathing), then people who live with you should not stay in the same room with you, or they should wear a face mask if they enter your room. Cover your coughs and sneezes Cover your mouth and nose with a tissue when you cough or sneeze. Throw used tissues in a lined trash can. Immediately wash your hands with soap and water for at least 20 seconds or, if soap and water are not available, clean your hands with an alcohol-based hand [place] that contains at least 60% alcohol. Clean your hands often Wash your hands often with soap and water for at least 20 seconds, especially after blowing your nose, coughing, or sneezing; going to the bathroom; and before eating or preparing food. If soap and water are not readily available, use an alcohol-based hand [place] with at least 60% alcohol, covering all surfaces of your hands and rubbing them together until they feel dry. Soap and water are the best option if hands are visibly dirty. Avoid touching your eyes, nose, and mouth with unwashed hands. Avoid sharing personal household items You should not share dishes, drinking glasses, cups, eating utensils, towels, or bedding with other people or pets in your home. After using these items, they should be washed thoroughly with soap and water. Clean all high-touch surfaces everyday High touch surfaces include counters, tabletops, doorknobs, bathroom fixtures, toilets, phones, keyboards, tablets, and bedside tables. Also, clean any surfaces that may have blood, stool, or body fluids on them. Use a household cleaning spray or wipe, according to the label instructions. Labels contain instructions for safe and effective use of the cleaning product including precautions you should take when applying the product, such as wearing gloves and making sure you have good ventilation during use of the product. Monitor your symptoms Seek prompt medical attention if your illness is worsening (e.g., difficulty breathing).Beforeseeking care, call your healthcare provider and tell them that you have, or are being evaluated for, COVID-19. Put on a face mask before you enter the facility. These steps will help the healthcare providers office to keep other people in the office or waiting room from getting infected or exposed. Ask your healthcare provider to call the local or state health department. Persons who are placed under active monitoring or facilitated self- monitoring should follow instructions provided by their local health department or occupational health professionals, as appropriate. When working with your local health department check their available hours. If you have a medical emergency and need to call 911, notify the dispatch personnel that you have, or are being evaluated for COVID-19. If possible, put on a face mask before emergency medical services arrive. Discontinuing home isolation Patients with confirmed COVID-19 should remain under home isolation precautions until the risk of secondary transmission to others is thought to be low. The decision to discontinue home isolation precautions should be made on a whgz-rb-[id number] basis, in consultation with healthcare providers and state and local health departments. Pending Studies at Discharge: Yes Stand-Alone Forms: My [facility] [place], Smoking Cessation Medications and DC Order Prescriptions: Continued doxycycline hyclate 100 mg tablet 100 mg PO BID 14 Days Qty: 28 RF: 0 cholecalciferol (vitamin D3) 50 mcg (2,000 unit) capsule 50 mcg PO DAILY Qty: 30 RF: 0 hydrocortisone 2.5 % cream with perineal applicator 1 applic [place] DAILY PRN (Reason: irritation) Qty: 30 RF: 0 diclofenac sodium 1 % gel 2 gm TOP QID PRN (Reason: Back Pain) RF: 0 valacyclovir 1 gram tablet 2,000 mg PO Q12H PRN (Reason: cold sore) Qty: 30 RF: 5 carbamazepine 200 mg tablet 200 mg PO BID RF: 0 acetaminophen [Tylenol Extra Strength] 500 mg Tablet 1,000 mg PO DIRECTED PRN (Reason: Pain) RF: 0 Pennsaid 2 % Solution In Packet 1 packet TOPICAL BID PRN (Reason: FOOT PAIN) RF: 0 omeprazole 20 mg capsule,delayed release(DR/EC) 20 mg PO Q OTHER DAY RF: 0 cholestyramine (with sugar) 4 gram powder in packet 4 gm PO .COMPLEX PRN (Reason: Diarrhea) RF: 0 clonazepam 0.25 mg tablet,disintegrating 0.25 mg translingual DIRECTED PRN (Reason: Pain BREAK THROUGH) RF: 0 Discharge Orders: Discharge Order (Routine); Ordered 05/16/20 Ordered By: Yoshi Nails Admission Data Admit Date/Time: 05/15/20 20:13 Attending Provider: Yoshi Nails Admit Provider: Susannah Molina Primary Care Provider: Trini Guidry. Other Providers: Susannah Molina ; Karlos Spence Other Interventions: Discharge Summary Assessment (RN) Last Done: 05/16/20 15:24 Coding Level of Care Code D/C Day Management >30 mins Diagnoses COVID-19 U07.1 New onset left bundle branch block (LBBB) I44.7 Trigeminal neuralgia G50.0 GERD without esophagitis K21.9
[2020-05-19 14:01] LABS: EBV Virus Capsid Ag IgG Ab >750.00 U/mL; Epstein Barr Virus Early Ag Ab <9.00 U/mL
== END 2020-05-16 17:30 | disposition home or self-care (01) ==
LOC: ED 14:51 → INTOOBSV 20:13 → 2S 20:13 → SUATTDRO 20:13 → 2S 05-16 01:21